=== PATIENT | male | born 1970 | race Caucasian/White ===

== ENCOUNTER 2024-09-24 19:18 | Inpatient (IN) | payer MEDICARE, MEDICAID, SELFPAY ==
[2024-09-24 19:21] VITALS: BP 174/95; PULSE 104; RESP 16; TEMP 36.7; O2SAT 94; BMI 35.5
--- NOTE | 2024-09-24 19:23 | ECG_ITS ---
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
[2024-09-24 19:46] LABS: Basophils % 0.6 %; Eosinophils % 0.4 %; Hematocrit 41.5 % (37-53); Lymphocytes # 1.7 10^3/uL (0.8-4.8); Lymphocytes % 31.3 %; Mean Corpuscular HGB Conc 30.6 g/dL (30-55); Mean Corpuscular Hemoglobin 32.6 pg (27-33); Mean Corpuscular Volume 106.7 fl (82-101); Mean Platelet Volume 9.8 fL (7.4-10.4); Monocytes # 0.8 10^3/uL (0.2-0.9); Monocytes % 15.1 %; Nucleated Red Blood Cells % 0 %; Platelet Count 135 10^3/cmm (157-399); Red Blood Count 3.89 10^6/uL (3.85-5.65); Red Cell Distribution Width 14.1 % (12.1-15.1); White Blood Count 5.37 10^3/uL (3.29-11.43)
--- NOTE | 2024-09-24 19:57 | W.ED.PSYCHS ---
Documented by User: Graciela Rubalcava MD 09/25/24 11:22 HPI - Psych General: Chief Complaint: Psychiatric Symptoms Stated Complaint: SI Time Seen by Provider: 09/24/24 19:22 History of Present Illness: 54-year-old man with a history of intellectual disability, antisocial personality, hypertension and bipolar disorder who [facility] emergency [facility] a [facility]. [facility] reports that he has been having behavioral outburst that have been worsening and severity. That is destroyed property and throwing things. They also say that he was trying to climb a fence. He tells me that all of this is false accusations. He also tells me that he had been accused of something and this was a false accusation as well. According the [facility] he has been convicted as a pediatric sex offender. He denies everything at this time. He says he was sitting on the ground outside and he was dirty. And that he did not attack anyone or try to climb any fences. Related Data Home Medications ?Medication ?Instructions ?Recorded ?Confirmed Lactobacillus acidophilus 1 tab PO DAILY 09/25/24 09/25/24 (Acidophilus chewable tablet) acetaminophen 500 mg tablet 1,000 mg PO Q6H PRN Pain 09/25/24 09/25/24 aluminum-mag hydroxide-simethicone 30 ml PO Q4H PRN Constipation 09/25/24 09/25/24 200 mg-200 mg-20 mg/5 mL oral susp (Xenia-Lanta) aspirin 81 mg tablet,delayed 81 mg PO DAILY 09/25/24 09/25/24 release atorvastatin 20 mg tablet 20 mg PO DAILY 09/25/24 09/25/24 bisacodyl 10 mg rectal suppository 10 mg CO DAILY PRN Constipation 09/25/24 09/25/24 buspirone 10 mg tablet 10 mg PO BID 09/25/24 09/25/24 citalopram 40 mg tablet 40 mg PO DAILY 09/25/24 09/25/24 dicyclomine 10 mg capsule 10 mg PO TID 09/25/24 09/25/24 divalproex 250 mg tablet,delayed 1,500 mg PO TID 09/25/24 09/25/24 release ergocalciferol (vitamin D2) 1,250 1,250 mcg PO DAILY 09/25/24 09/25/24 mcg (50,000 unit) capsule hydroxyzine HCl 25 mg tablet 25 mg PO QPM 09/25/24 09/25/24 loperamide 2 mg tablet 2 mg PO Q6H PRN Constipation 09/25/24 09/25/24 magnesium hydroxide 400 mg/5 mL 30 ml PO DAILY 09/25/24 09/25/24 oral suspension (Milk of Magnesia) meloxicam 15 mg tablet 15 mg PO DAILY 09/25/24 09/25/24 metoprolol tartrate 25 mg tablet 25 mg PO BID 09/25/24 09/25/24 omeprazole 20 mg capsule,delayed 20 mg PO DAILY 09/25/24 09/25/24 release polyethylene glycol 3350 17 17 g PO DAILY 09/25/24 09/25/24 gram/dose oral powder (Miralax) quetiapine 25 mg tablet 25 mg PO DAILY 09/25/24 09/25/24 quetiapine 50 mg tablet 50 mg PO DAILY 09/25/24 09/25/24 simethicone 80 mg chewable tablet 80 mg PO Q6H 09/25/24 09/25/24 tamsulosin 0.4 mg capsule 0.4 mg PO DAILY 09/25/24 09/25/24 triamcinolone acetonide 0.1 % 1 applic topical BID 09/25/24 09/25/24 topical cream Allergies Allergy/AdvReac Type Severity Reaction Status Date / Time mushroom Allergy Unknown Verified 09/24/24 19:27 Review of Systems Narrative: Constitutional symptoms: Negative except as documented in HPI. Skin symptoms: Negative except as documented in HPI. Eye symptoms: Negative except as documented in HPI. ENMT symptoms: Negative except as documented in HPI. Respiratory symptoms: Negative except as documented in HPI. Cardiovascular symptoms: Negative except as documented in HPI. Gastrointestinal symptoms: Negative except as documented in HPI. Genitourinary symptoms: Negative except as documented in HPI. Musculoskeletal symptoms: Negative except as documented in HPI. Neurologic symptoms: Negative except as documented in HPI. Psychiatric symptoms: Negative except as documented in HPI. Endocrine symptoms: Negative except as documented in HPI. Physical Exam Narrative: EXAM NARRATIVE: General: Alert, no acute distress. Skin: Warm, dry. Head: Normocephalic, atraumatic. Neck: Supple, trachea midline. Eye: Extraocular movements are intact. Ears, nose, mouth and throat: mucosa moist. Cardiovascular: Regular, Normal peripheral perfusion. Respiratory: Lungs are clear to auscultation, respirations are non-labored, breath sounds are equal, Symmetrical chest wall expansion. Gastrointestinal: Soft, Nontender, Non distended Musculoskeletal: Normal ROM, no deformity. Neurological: Alert and oriented, No focal neurological deficit observed. Psychiatric: Cooperative, odd affect. Denies suicidal or homicidal ideation Course Vital Signs: Vital signs: Vital Signs Temperature 98.1 F 09/24/24 19:21 Pulse Rate 65 09/25/24 12:00 Respiratory Rate 16 09/24/24 19:21 Blood Pressure 149/96 09/25/24 09:35 Pulse Oximetry 94 09/25/24 12:00 Oxygen Delivery Me thod Room Air 09/25/24 09:35 MDM - Psych Medical Decision Making Medical decision making: Differential diagnosis for patient with reported psychosis with plan for psychiatric admission including but not limited to and based on the above HPI, review of systems and physical exam: concerns for infection, alcohol intoxication, cardiac issues or other medical problems prior to psychiatric admission. Orders placed to evaluate differential diagnosis based on the above differential, HPI and physical exam labwork, ekg ordered to evaluate the pathologies and to clear the patient medically prior to psychiatric admission Consultation: I spoke with Dr. Zayas he suggest that we transfer to another facility as the patient might be better suited for that with his mild learning disability and behavioral issues and personality disorder. Patient care transitioned to Dr. Liang at shift change. If no one is accepted the patient tomorrow Dr. Zayas will see him here. Or admit him Lab Data 09/24/24 19:33 09/24/24 19:33 Laboratory Results WBC 5.37 10^3/uL (3.29-11.43) 09/24/24 19: RBC 3.89 10^6/uL (3.85-5.65) 09/24/24 19:33 Hgb 12.70 g/dL (11.27-16.99) 09/24/24 19:33 Hct 41.5 % (37-53) 09/24/24 19:33 MCV 106.7 fl (82-101) H 09/24/24 19: MCH 32.6 pg (27-33) 09/24/24 19:33 MCHC 30.6 g/dL (30-55) 09/24/24 19: RDW 14.1 % (12.1-15.1) 09/24/24 19:33 Plt Count 135 10^3/cmm (157-399) L 09/24/24 19:33 MPV 9.8 fL (7.4-10.4) 09/24/24 19: Neut % (Auto) 52.0 % 09/24/24 19: Lymph % (Auto) 31.3 % 09/24/24 19:33 Meigs % (Auto) 15.1 % 09/24/24 19: Eos % (Auto) 0.4 % 09/24/24 19: Baso % (Auto) 0.6 % 09/24/24: Neut # (Auto) 2.80 10^3/uL (1.8-7.7) 09/24/24 19: Lymph # (Auto) 1.7 10^3/uL (0.8-4.8) 09/24/24 19: [place] # (Auto) 0.8 10^3/uL (0.2-0.9) 09/24/24 19: Eos # (Auto) 0.0 10^3/uL (0.0-0.8) 09/24/24 19: Baso # (Auto) 0.0 10^3/uL (0.0-0.1) 09/24/24 19: Nucleated RBC % (auto) 0 % 09/24/24: Nucleated RBCs # 0.0 /100WBC 09/24/24 19:33 Sodium 137 mmol/L (136-145) 09/24/24 19:33 Potassium 4.6 mmol/L (3.5-5.1) 09/24/24 19: Chloride 103 mmol/L (98-107) 09/24/24 19: Carbon Dioxide 25 mmol/L (22-29) 09/24/24 19:33 Anion Gap 13.6 (5-19) 09/24/24 19:33 BUN 16 mg/dL (6-20) 09/24/24 19: Creatinine 1.1 mg/dL (0.7-1.2) 09/24/24 19:33 GFR Calculation 69.5 mL/min (90-130) L 09/24/24 19:33 Glucose 88 mg/dL (65-115) 09/24/24 19:33 Calculated Osmolality 285 mOsm/kg (285-295) 09/24/24 19:33 Calcium 9.2 mg/dL (8.5-10.5) 09/24/24 19:33 Total Bilirubin 0.2 mg/dL (0.15-1.2) 09/24/24 19:33 AST 40 U/L (0-40) 09/24/24 19:33 ALT 45 U/L (0-41) H 09/24/24 19:33 Alkaline Phosphatase 62 U/L (40-130) 09/24/24 19:33 Total Protein 6.2 g/dL (6.6-8.7) L 09/24/24 19: Albumin 4.1 g/dL (3.5-5.2) 09/24/24 19: Globulin 2.1 g/dL (1.3-4.6) 09/24/24 19:33 TSH 5.56 uIU/mL (0.27-4.20) H 09/24/24 19:33 Urine Color Yellow (Yellow) 09/24/24 20:54 Urine Appearance Clear (CLEAR) 09/24/24 20:54 Urine pH 6.5 (5-7) 09/24/24 20:54 Ur Specific [place] 1.018 (1.005-1.030) 09/24/24 20:54 Urine Protein Negative (Negative) 09/24/24 20:54 Urine Glucose (UA) Negative (Normal) 09/24/24 20:54 Urine Ketones Negative (Negative) 09/24/24 20:54 Urine Blood Negative (Negative) 09/24/24 20:54 Urine Nitrate Negative (Negative) 09/24/24 20:54 Urine Bilirubin Negative (Negative) 09/24/24 20:54 Urine Urobilinogen 1.0 mg/dL (Negative) 09/24/24 20:54 Ur Leukocyte Esterase Negative (Negative) 09/24/24 20:54 Urine RBC 6-10 /hpf (0-2) 09/24/24 20:54 Urine WBC 0-5 /hpf (0-5) 09/24/24 20:54 Ur Squamous Epith Cells 0-5 /hpf (0-5) 09/24/24 20:54 Amorphous Sediment Not Reportable 09/24/24 20:54 Urine Bacteria None seen /hpf (NONE) 09/24/24 20:54 Hyaline Casts 0-4 /lpf H 09/24/24 20:54 Salicylates < 0.3 mg/dL (3-10) L 09/24/24 19:33 Urine Opiates Screen Negative ng/mL (Negative) 09/24/24 20:54 Acetaminophen < 5.0 ug/mL (10-30) L 09/24/24 19:33 Ur Barbiturates Screen Negative ng/mL (Negative) 09/24/24 20:54 Ur Phencyclidine Scrn Negative ng/mL (Negative) 09/24/24 20:54 Ur Amphetamines Screen Negative ng/mL (Negative) 09/24/24 20:54 U Benzodiazepines Scrn Negative ng/mL (Negative) 09/24/24 20:54 Urine Cocaine Screen Negative ng/mL (Negative) 09/24/24 20:54 U Marijuana (THC) Screen Negative ng/mL (Negative) 09/24/24 20:54 Ethyl Alcohol < 10 mg/dL (0-10) 09/24/24 19:33 Adenovirus (PCR) Not detected (NOT DETECT) 09/24/24 20:52 C. pneumoniae DNA (PCR) Not detected (NOT DETECT) 09/24/24 20:52 Coronavirus 229E (PCR) Not detected (NOT DETECT) 09/24/24 20:52 Human Metapneumovir PCR Not detected (NOT DETECT) 09/24/24 20:52 Influenza A (H1) PCR Not detected (NOT DETECT) 09/24/24 20:52 Influ A (H1/09) PCR Not detected (NOT DETECT) 09/24/24 20:52 Influenza A (H3) PCR Not detected (NOT DETECT) 09/24/24 20:52 Influenza Type A (PCR) Not detected (NOT DETECT) 09/24/24 20:52 Influenza Type B (PCR) Not detected (NOT DETECT) 09/24/24 20:52 M. pneumoniae (PCR) Not detected (NOT DETECT) 09/24/24 20:52 Parainfluenza 1 (PCR) Not detected (NOT DETECT) 09/24/24 20:52 Parainfluenza 2 (PCR) Not detected (NOT DETECT) 09/24/24 20:52 Parainfluenza 3 (PCR) Not detected (NOT DETECT) 09/24/24 20:52 Parainfluenza 4 (PCR) Not detected (NOT DETECT) 09/24/24 20:52 RSV Type A (PCR) Not detected (NOT DETECT) 09/24/24 20:52 RSV Type B (PCR) Not detected (NOT DETECT) 09/24/24 20:52 Entero/Rhino (PCR) Not detected (NOT DETECT) 09/24/24 20:52 SARS-CoV-2 (PCR) Not detected (NOT DETECT) 09/24/24 20:52 No radiology studies performed this visit Discharge Plan Discharge Patient Disposition: Admitted As Inpatient Clinical Impression: Bipolar disorder, Antisocial personality disorder, Behavioral disorder Condition: Stable Prescriptions: No Action quetiapine 25 mg tablet 25 mg PO DAILY atorvastatin 20 mg tablet 20 mg PO DAILY citalopram 40 mg tablet 40 mg PO DAILY divalproex 250 mg tablet,delayed release (DR/EC) 1,500 mg PO TID Rx Instructions: give 6 tablets by mouth three times daily for antisocial personality meloxicam 15 mg tablet 15 mg PO DAILY loperamide 2 mg Tablet 2 mg PO Q6H PRN (Reason: Constipation) aspirin [Aspir-81] 81 mg Tablet,Delayed Release (Dr/Ec) 81 mg PO DAILY acetaminophen 500 mg Tablet 1,000 mg PO Q6H PRN (Reason: Pain) triamcinolone acetonide 0.1 % Cream 1 applic TOPICAL BID magnesium hydroxide [Milk of Magnesia] 400 mg/5 mL Suspension 30 ml PO DAILY tamsulosin 0.4 mg capsule 0.4 mg PO DAILY bisacodyl 10 mg Suppository 10 mg CO DAILY PRN (Reason: Constipation) buspirone 10 mg tablet 10 mg PO BID omeprazole 20 mg capsule,delayed release(DR/EC) 20 mg PO DAILY hydroxyzine HCl 25 mg tablet 25 mg PO QPM ergocalciferol (vitamin D2) 1,250 mcg (50,000 unit) Capsule 1,250 mcg PO DAILY alum-mag hydroxide-simeth [Xenia-Lanta] 200-200-20 mg/5 mL Suspension 30 ml PO Q4H PRN (Reason: Constipation) Rx Instructions: administer between meals and at bedtime polyethylene glycol 3350 [Miralax] 17 gram/dose Powder 17 g PO DAILY dicyclomine 10 mg capsule 10 mg PO TID simethicone 80 mg Tablet,Chewable 80 mg PO Q6H Acidophilus Tablet,Chewable 1 tab PO DAILY metoprolol tartrate 25 mg tablet 25 mg PO BID quetiapine 50 mg tablet 50 mg PO DAILY Referrals: Wilman Britton [Primary Care Provider] - Patient Instructions: Opioid Safety, Pain Management Print Language: Welsh Sign Out Sign Out Data: Patient Sign Out occurred on 09/25/24 at 10:41. Patient's care was discussed, and care was transferred from Graciela Rubalcava MD to Hermilo Bolaños DO. Coding Level of Care Code ED Registrar Assistant for Ch[facility] Fwd Documented by User: Hermilo Bolaños DO 09/25/24 14:28 HPI - Psych General: Chief Complaint: Psychiatric Symptoms Stated Complaint: SI Time Seen by Provider: 09/24/24 19:22 Related Data Home Medications ?Medication ?Instructions ?Recorded ?Confirmed Lactobacillus acidophilus 1 tab PO DAILY 09/25/24 09/25/24 (Acidophilus chewable tablet) acetaminophen 500 mg tablet 1,000 mg PO Q6H PRN Pain 09/25/24 09/25/24 aluminum-mag hydroxide-simethicone 30 ml PO Q4H PRN Constipation 09/25/24 09/25/24 200 mg-200 mg-20 mg/5 mL oral susp (Xenia-Lanta) aspirin 81 mg tablet,delayed 81 mg PO DAILY 09/25/24 09/25/24 release atorvastatin 20 mg tablet 20 mg PO DAILY 09/25/24 09/25/24 bisacodyl 10 mg rectal suppository 10 mg CO DAILY PRN Constipation 09/25/24 09/25/24 buspirone 10 mg tablet 10 mg PO BID 09/25/24 09/25/24 citalopram 40 mg tablet 40 mg PO DAILY 09/25/24 09/25/24 dicyclomine 10 mg capsule 10 mg PO TID 09/25/24 09/25/24 divalproex 250 mg tablet,delayed 1,500 mg PO TID 09/25/24 09/25/24 release ergocalciferol (vitamin D2) 1,250 1,250 mcg PO DAILY 09/25/24 09/25/24 mcg (50,000 unit) capsule hydroxyzine HCl 25 mg tablet 25 mg PO QPM 09/25/24 09/25/24 loperamide 2 mg tablet 2 mg PO Q6H PRN Constipation 09/25/24 09/25/24 magnesium hydroxide 400 mg/5 mL 30 ml PO DAILY 09/25/24 09/25/24 oral suspension (Milk of Magnesia) meloxicam 15 mg tablet 15 mg PO DAILY 09/25/24 09/25/24 metoprolol tartrate 25 mg tablet 25 mg PO BID 09/25/24 09/25/24 omeprazole 20 mg capsule,delayed 20 mg PO DAILY 09/25/24 09/25/24 release polyethylene glycol 3350 17 17 g PO DAILY 09/25/24 09/25/24 gram/dose oral powder (Miralax) quetiapine 25 mg tablet 25 mg PO DAILY 09/25/24 09/25/24 quetiapine 50 mg tablet 50 mg PO DAILY 09/25/24 09/25/24 simethicone 80 mg chewable tablet 80 mg PO Q6H 09/25/24 09/25/24 tamsulosin 0.4 mg capsule 0.4 mg PO DAILY 09/25/24 09/25/24 triamcinolone acetonide 0.1 % 1 applic topical BID 09/25/24 09/25/24 topical cream Allergies Allergy/AdvReac Type Severity Reaction Status Date / Time mushroom Allergy Unknown Verified 09/24/24 19:27 Course Vital Signs: Vital signs: Vital Signs Temperature 98.1 F 09/24/24 19:21 Pulse Rate 65 09/25/24 12:00 Respiratory Rate 16 09/24/24 19:21 Blood Pressure 149/96 09/25/24 09:35 Pulse Oximetry 94 09/25/24 12:00 Oxygen Delivery Me thod Room Air 09/25/24 09:35 MDM - Psych Medical Decision Making Medical decision making: Differential diagnosis for patient with reported psychosis with plan for psychiatric admission including but not limited to and based on the above HPI, review of systems and physical exam: concerns for infection, alcohol intoxication, cardiac issues or other medical problems prior to psychiatric admission. Orders placed to evaluate differential diagnosis based on the above differential, HPI and physical exam labwork, ekg ordered to evaluate the pathologies and to clear the patient medically prior to psychiatric admission Consultation: I spoke with Dr. Zayas he suggest that we transfer to another facility as the patient might be better suited for that with his mild learning disability and behavioral issues and personality disorder. Patient care transitioned to Dr. Liang at shift change. If no one is accepted the patient tomorrow Dr. Zayas will see him here. Or admit him 09/25/2024 1046 care assumed at change of shift. Patient has been refused by all the facilities they have reviewed with him because of his behavioral issues. I talked to Dr. Zaays he is Khadar, consult on the patient Dr. Rubalcava and talk to him about this patient yesterday. Dr. Zayas is seen the patient chart [facility] is saying they will accept the patient back after hospitalization. Dr. Zayas agreed to admit him to our [facility] orders are written Medical Records I reviewed the patient's medical records. Lab Data I reviewed the patient's lab results. 09/24/24 19:33 09/24/24 19:33 Laboratory Results WBC 5.37 10^3/uL (3.29-11.43) 09/24/24 19: RBC 3.89 10^6/uL (3.85-5.65) 09/24/24 19: Hgb 12.70 g/dL (11.27-16.99) 09/24/24 19: Hct 41.5 % (37-53) 09/24/24 19: MCV 106.7 fl (82-101) H 09/24/24 19: MCH 32.6 pg (27-33) 09/24/24 19: MCHC 30.6 g/dL (30-55) 09/24/24 19:33 RDW 14.1 % (12.1-15.1) 09/24/24 19: Plt Count 135 10^3/cmm (157-399) L 09/24/24 19: MPV 9.8 fL (7.4-10.4) 09/24/24 19:33 Neut % (Auto) 52.0 % 09/24/24 19: Lymph % (Auto) 31.3 % 09/24/24 19:33 [place] % (Auto) 15.1 % 09/24/24 19:33 Eos % (Auto) 0.4 % 09/24/24 19:33 Baso % (Auto) 0.6 % 09/24/24: Neut # (Auto) 2.80 10^3/uL (1.8-7.7) 09/24/24 19: Lymph # (Auto) 1.7 10^3/uL (0.8-4.8) 09/24/24 19: [place] # (Auto) 0.8 10^3/uL (0.2-0.9) 09/24/24 19: Eos # (Auto) 0.0 10^3/uL (0.0-0.8) 09/24/24: Baso # (Auto) 0.0 10^3/uL (0.0-0.1) 09/24/24 19: Nucleated RBC % (auto) 0 % 09/24/24: Nucleated RBCs # 0.0 /100WBC 09/24/24 19:33 Sodium 137 mmol/L (136-145) 09/24/24 19:33 Potassium 4.6 mmol/L (3.5-5.1) 09/24/24 19: Chloride 103 mmol/L (98-107) 09/24/24 19: Carbon Dioxide 25 mmol/L (22-29) 09/24/24 19:33 Anion Gap 13.6 (5-19) 09/24/24 19:33 BUN 16 mg/dL (6-20) 09/24/24 19: Creatinine 1.1 mg/dL (0.7-1.2) 09/24/24 19:33 GFR Calculation 69.5 mL/min (90-130) L 09/24/24 19:33 Glucose 88 mg/dL (65-115) 09/24/24 19:33 Calculated Osmolality 285 mOsm/kg (285-295) 09/24/24 19:33 Calcium 9.2 mg/dL (8.5-10.5) 04/28/25 19:33 Total Bilirubin 0.2 mg/dL (0.15-1.2) 09/24/24 19:33 AST 40 U/L (0-40) 09/24/24 19:33 ALT 45 U/L (0-41) H 09/24/24 19:33 Alkaline Phosphatase 62 U/L (40-130) 09/24/24 19:33 Total Protein 6.2 g/dL (6.6-8.7) L 09/24/24 19:33 Albumin 4.1 g/dL (3.5-5.2) 09/24/24 19: Globulin 2.1 g/dL (1.3-4.6) 09/24/24 19: TSH 5.56 uIU/mL (0.27-4.20) H 09/24/24 19:33 Urine Color Yellow (Yellow) 09/24/24 20:54 Urine Appearance Clear (CLEAR) 09/24/24 20:54 Urine pH 6.5 (5-7) 09/24/24 20:54 Ur Specific [place] 1.018 (1.005-1.030) 09/24/24 20:54 Urine Protein Negative (Negative) 09/24/24 20:54 Urine Glucose (UA) Negative (Normal) 09/24/24 20:54 Urine Ketones Negative (Negative) 09/24/24 20:54 Urine Blood Negative (Negative) 09/24/24 20:54 Urine Nitrate Negative (Negative) 09/24/24 20:54 Urine Bilirubin Negative (Negative) 09/24/24 20:54 Urine Urobilinogen 1.0 mg/dL (Negative) 09/24/24 20:54 Ur Leukocyte Esterase Negative (Negative) 09/24/24 20:54 Urine RBC 6-10 /hpf (0-2) 09/24/24 20:54 Urine WBC 0-5 /hpf (0-5) 09/24/24 20:54 Ur Squamous Epith Cells 0-5 /hpf (0-5) 09/24/24 20:54 Amorphous Sediment Not Reportable 09/24/24 20:54 Urine Bacteria None seen /hpf (NONE) 09/24/24 20:54 Hyaline Casts 0-4 /lpf H 09/24/24 20:54 Salicylates < 0.3 mg/dL (3-10) L 09/24/24 19:33 Urine Opiates Screen Negative ng/mL (Negative) 09/24/24 20:54 Acetaminophen < 5.0 ug/mL (10-30) L 09/24/24 19:33 Ur Barbiturates Screen Negative ng/mL (Negative) 09/24/24 20:54 Ur Phencyclidine Scrn Negative ng/mL (Negative) 09/24/24 20:54 Ur Amphetamines Screen Negative ng/mL (Negative) 09/24/24 20:54 U Benzodiazepines Scrn Negative ng/mL (Negative) 09/24/24 20:54 Urine Cocaine Screen Negative ng/mL (Negative) 09/24/24 20:54 U Marijuana (THC) Screen Negative ng/mL (Negative) 09/24/24 20:54 Ethyl Alcohol < 10 mg/dL (0-10) 09/24/24 19:33 Adenovirus (PCR) Not detected (NOT DETECT) 09/24/24 20:52 C. pneumoniae DNA (PCR) Not detected (NOT DETECT) 09/24/24 20:52 Coronavirus 229E (PCR) Not detected (NOT DETECT) 09/24/24 20:52 Human Metapneumovir PCR Not detected (NOT DETECT) 09/24/24 20:52 Influenza A (H1) PCR Not detected (NOT DETECT) 09/24/24 20:52 Influ A (H1/09) PCR Not detected (NOT DETECT) 09/24/24 20:52 Influenza A (H3) PCR Not detected (NOT DETECT) 09/24/24 20:52 Influenza Type A (PCR) Not detected (NOT DETECT) 09/24/24 20:52 Influenza Type B (PCR) Not detected (NOT DETECT) 09/24/24 20:52 M. pneumoniae (PCR) Not detected (NOT DETECT) 09/24/24 20:52 Parainfluenza 1 (PCR) Not detected (NOT DETECT) 09/24/24 20:52 Parainfluenza 2 (PCR) Not detected (NOT DETECT) 09/24/24 20:52 Parainfluenza 3 (PCR) Not detected (NOT DETECT) 09/24/24 20:52 Parainfluenza 4 (PCR) Not detected (NOT DETECT) 09/24/24 20:52 RSV Type A (PCR) Not detected (NOT DETECT) 09/24/24 20:52 RSV Type B (PCR) Not detected (NOT DETECT) 09/24/24 20:52 Entero/Rhino (PCR) Not detected (NOT DETECT) 09/24/24 20:52 SARS-CoV-2 (PCR) Not detected (NOT DETECT) 09/24/24 20:52 Discharge Plan Discharge Patient Disposition: Admitted As Inpatient Clinical Impression: Bipolar disorder, Antisocial personality disorder, Behavioral disorder Condition: Stable Prescriptions: No Action quetiapine 25 mg tablet 25 mg PO DAILY atorvastatin 20 mg tablet 20 mg PO DAILY citalopram 40 mg tablet 40 mg PO DAILY divalproex 250 mg tablet,delayed release (DR/EC) 1,500 mg PO TID Rx Instructions: give 6 tablets by mouth three times daily for antisocial personality meloxicam 15 mg tablet 15 mg PO DAILY loperamide 2 mg Tablet 2 mg PO Q6H PRN (Reason: Constipation) aspirin [Aspir-81] 81 mg Tablet,Delayed Release (Dr/Ec) 81 mg PO DAILY acetaminophen 500 mg Tablet 1,000 mg PO Q6H PRN (Reason: Pain) triamcinolone acetonide 0.1 % Cream 1 applic TOPICAL BID magnesium hydroxide [Milk of Magnesia] 400 mg/5 mL Suspension 30 ml PO DAILY tamsulosin 0.4 mg capsule 0.4 mg PO DAILY bisacodyl 10 mg Suppository 10 mg CO DAILY PRN (Reason: Constipation) buspirone 10 mg tablet 10 mg PO BID omeprazole 20 mg capsule,delayed release(DR/EC) 20 mg PO DAILY hydroxyzine HCl 25 mg tablet 25 mg PO QPM ergocalciferol (vitamin D2) 1,250 mcg (50,000 unit) Capsule 1,250 mcg PO DAILY alum-mag hydroxide-simeth [Xenia-Lanta] 200-200-20 mg/5 mL Suspension 30 ml PO Q4H PRN (Reason: Constipation) Rx Instructions: administer between meals and at bedtime polyethylene glycol 3350 [Miralax] 17 gram/dose Powder 17 g PO DAILY dicyclomine 10 mg capsule 10 mg PO TID simethicone 80 mg Tablet,Chewable 80 mg PO Q6H Acidophilus Tablet,Chewable 1 tab PO DAILY metoprolol tartrate 25 mg tablet 25 mg PO BID quetiapine 50 mg tablet 50 mg PO DAILY Referrals: Wilman Britton [Primary Care Provider] - Patient Instructions: Opioid Safety, Pain Management Print Language: Welsh Sign Out Sign Out Data: Patient Sign Out occurred on 09/25/24 at 10:41. Patient's care was discussed, and care was transferred from Graciela Rubalcava MD to Hermilo Bolaños DO. Coding Level of Care Code ED Registrar Assistant for Cedric Benavidez
[2024-09-24 20:11] LABS: Alanine Aminotransferase 45 U/L (0-41); Albumin Level 4.1 g/dL (3.5-5.2); Alkaline Phosphatase 62 U/L (40-130); Anion Gap 13.6 (5-19); Aspartate Amino Transferase 40 U/L (0-40); Blood Urea Nitrogen 16 mg/dL (6-20); Calcium 9.2 mg/dL (8.5-10.5); Carbon Dioxide 25 mmol/L (22-29); Chloride 103 mmol/L (98-107); Creatinine Clr Calc Pharmacy 83.9225; Globulin 2.1 g/dL (1.3-4.6); Glomerular Filtration Rate 69.5 mL/min (90-130); Glucose 88 mg/dL (65-115); Osmolality Calculated 285 mOsm/kg (285-295); Potassium 4.6 mmol/L (3.5-5.1); Sodium 137 mmol/L (136-145); Thyroid Stimulating Hormone 5.56 uIU/mL (0.27-4.20); Total Bilirubin 0.2 mg/dL (0.15-1.2); Total Protein 6.2 g/dL (6.6-8.7)
[2024-09-24 20:18] LABS: Acetaminophen < 5.0 ug/mL (10-30); Alcohol Level < 10 mg/dL (0-10); Salicylate < 0.3 mg/dL (3-10)
[2024-09-24 21:12] LABS: Bilirubin Urine Negative (Negative); Blood Urine Negative (Negative); Glucose Urine UA Negative (Normal); Ketones Urine Negative (Negative); Leukocyte Esterase Urine Negative (Negative); Nitrate Urine Negative (Negative); Protein Urine Negative (Negative); Specific Gravity, Urine 1.018 (1.005-1.030); Urine Appearance Clear (CLEAR); Urine Color Yellow (Yellow); pH Urine 6.5 (5-7)
[2024-09-24 21:14] LABS: Add Urine Microscopic? YES; Bacteria Urine None Seen /hpf; Hyaline Casts Urine 0-4 /lpf; Squamous Epithelial Cell Urine 0-5 /hpf (0-5); WBC Urine 0-5 /hpf (0-5)
[2024-09-24 21:19] LABS: Amphetamines Screen Urine Negative (Negative); Barbiturates Screen Urine Negative (Negative); Benzodiazepines Screen Urine Negative (Negative); Cocaine Screen Urine Negative (Negative); Opiate Screen Urine Negative (Negative); PCP Screen Urine Negative (Negative); THC Screen Urine Negative (Negative)
[2024-09-24 22:46] LABS: Adenovirus Not Detected (NOT DETECT); Chlamydia Pneumoniae Not Detected (NOT DETECT); Coronavirus 229E,HKU1,NL63,OC4 Not Detected (NOT DETECT); Human Metapneumovirus Not Detected (NOT DETECT); Human Rhinovirus/Enterovirus Not Detected (NOT DETECT); Influenza A Not Detected (NOT DETECT); Influenza A H1 Not Detected (NOT DETECT); Influenza A H1-2009 Not Detected (NOT DETECT); Influenza A H3 Not Detected (NOT DETECT); Influenza B Not Detected (NOT DETECT); Mycoplasma Pneumoniae Not Detected (NOT DETECT); Parainfluenza Virus Type 1 Not Detected (NOT DETECT); Parainfluenza Virus Type 2 Not Detected (NOT DETECT); Parainfluenza Virus Type 3 Not Detected (NOT DETECT); Parainfluenza Virus Type 4 Not Detected (NOT DETECT); Respiratory Syncytial Virus A Not Detected (NOT DETECT); Respiratory Syncytial Virus B Not Detected (NOT DETECT); SARS-COV-2 Not Detected (NOT DETECT)
[2024-09-25 04:00] VITALS: BP 144/86; PULSE 70; O2SAT 94
--- NOTE | 2024-09-25 07:26 | PC.PHAR ---
patient is from [facility]
[2024-09-25 09:35] VITALS: BP 149/96; PULSE 83; O2SAT 96
[2024-09-25 12:00] VITALS: PULSE 65; O2SAT 94
--- NOTE | 2024-09-25 14:35 | PC.NURSE ---
Spoke to Ania at [facility], Ania states that pt will be accepted back to facility. Ania aware of pt's update and admit to [facility].
--- NOTE | 2024-09-25 14:42 | PC.NURSE ---
PT report called to Stefani in [facility] at 1440.
[2024-09-25 15:48] VITALS: BP 121/83; PULSE 83; RESP 18; TEMP 36.7; O2SAT 98
[2024-09-25 16:05] VITALS: BP 149/96; PULSE 65; O2SAT 94
[2024-09-25] MEDS: acetaminophen 325 mg Tablet 650 MG PO (16:36)
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
[2024-09-25] MEDS: trazodone 50 mg Tablet PO ×2 (19:21→20:11)
[2024-09-25] MEDS: hyDROXYzine 25 mg Capsule 50 MG PO (19:21)
[2024-09-25 20:06] VITALS: BP 131/93; PULSE 88; RESP 18; TEMP 36.7; O2SAT 100
[2024-09-25] MEDS: simethicone 80 mg Chew PO (20:11)
[2024-09-25] MEDS: OLANZapine 5 mg ODT PO (20:11)
[2024-09-25] MEDS: divalproex DR 250 mg Tablet 1500 MG PO (20:11)
[2024-09-26 05:56] VITALS: BP 136/86; PULSE 104; RESP 18; TEMP 36.8; O2SAT 98
[2024-09-26] MEDS: BuSPIRONE 10 mg Tablet PO ×2 (08:26→17:50)
[2024-09-26] MEDS: polyethylene glycol 3350 Pkt 17 gm PO (08:26)
[2024-09-26] MEDS: ATORVASTATIN 10 MG TABLET 20 MG PO ×2 (08:26→20:01)
[2024-09-26] MEDS: citalopram 20 mg Tablet 40 MG PO (08:27)
[2024-09-26] MEDS: acetaminophen 325 mg Tablet 650 MG PO (08:27)
[2024-09-26] MEDS: OLANZapine 5 mg ODT PO ×2 (08:27→20:01)
[2024-09-26] MEDS: quetiapine 25 mg Tablet PO (08:27)
[2024-09-26] MEDS: lactobacillus 1 Tablet 1 TAB PO (08:27)
[2024-09-26] MEDS: simethicone 80 mg Chew PO ×2 (08:27→13:59)
[2024-09-26] MEDS: pantoprazole DR 40 mg Tablet PO (08:27)
[2024-09-26] MEDS: divalproex DR 250 mg Tablet 1500 MG PO ×2 (08:28→20:59)
[2024-09-26] MEDS: meloxicam 7.5 mg tablet 15 MG PO (08:28)
[2024-09-26] MEDS: tamsulosin 0.4 mg Capsule PO (08:28)
[2024-09-26] MEDS: metoprolol tartrate 25 mg Tablet PO ×2 (08:28→17:49)
[2024-09-26] MEDS: aspirin 81 mg EC Tablet PO (08:28)
[2024-09-26] MEDS: quetiapine 25 mg Tablet 50 MG PO (08:28)
[2024-09-26] MEDS: dicyclomine 10 mg Capsule PO ×3 (10:27→20:01)
--- NOTE | 2024-09-26 13:37 | W.PM.NPUH&PS ---
Providers/Chief Complaint Admitting Physician: Steven Zayas MD Primary Care Provider: Wilman Britton Chief Complaint: SI HPI NPU History of Present Illness Dameon Hernandez is a 54 year old male who presented to the emergency department with the following report: AcuteChief Complaint: Psychiatric Symptoms Stated Complaint: SI Time Seen by Provider: 09/24/24 19:22 History of Present Illness: 54-year-old man with a history of intellectual disability, antisocial personality, hypertension and bipolar disorder who presents emergency room by ambulance from a prison. intermediate reports that he has been having behavioral outburst that have been worsening and severity. That is destroyed property and throwing things. They also say that he was trying to climb a fence. He tells me that all of this is false accusations. He also tells me that he had been accused of something and this was a false accusation as well. According the prison he has been convicted as a pediatric sex offender. He denies everything at this time. He says he was sitting on the ground outside and he was dirty. And that he did not attack anyone or try to climb any fences. He was admitted to the neuropsychiatric unit for definitive treatment of those issues. He is unknown to [facility] psychiatry through inpatient or outpatient services. He presented today as a very poor historian as he was very lethargic and hard to arouse Fall asleep during interview. He spoke earlier briefly and he was alert but by the time I saw him he was unable to be awoken for regular conversation. Even so it appears that he is a limited historian due to past diagnosis of intellectual disability and there is significant discrepancy between his reports and those of his facility. 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 For reasons possibly of being an appropriate in front of his roommate he was removed from the ISL and now is in a prison. I do not report those kinds of issues thus far but report him to be quite mercurial and having essentially intermittent explosions related to boundary setting. He had denied this concern or issue reporting that he is misunderstood. They report that in situations where they set limits he will immediately be explosive or agitated and not able to be redirected. Again he has denied these accusations. They even report that in this situation he had a very fast but aggressive response to the interaction with a staff member and was reportedly throwing things. There is even some report of him climbing on something but he denies that to be true either. They report however shortly after he had had his explosion, he ended up seeming to calm down but concerns about his behavior and that it was seeming to escalate were present and so he was brought to the hospital for evaluation of his medication. We discussed the risks, benefits and alternatives of considering changing out of the Seroquel and possibly giving him something like Invega or Abilify but we we will need to get some information on past medications and he understood and agreed to proceed as is documented in this note. He does have a guardian and so we will reach out to the guardian and figure out what that person knows if it is a longtime guardian or somebody from the facility. There are some concerns about his amount of medication and we discussed that we would evaluate his medication and make changes as indicated. Meds NPU Home Medications ?Medication ?Instructions ?Recorded ?Confirmed ?Last Taken ?Type Lactobacillus acidophilus 1 tab PO DAILY 09/25/24 09/25/24 Unknown History (Acidophilus chewable tablet) acetaminophen 500 mg tablet 1,000 mg PO Q6H PRN Pain 09/25/24 09/25/24 09/08/24 History aluminum-mag hydroxide-simethicone 30 ml PO Q4H PRN Constipation 09/25/24 09/25/24 Unknown History 200 mg-200 mg-20 mg/5 mL oral susp (Xneia-Lanta) aspirin 81 mg tablet,delayed 81 mg PO DAILY 09/25/24 09/25/24 09/24/24 History release atorvastatin 20 mg tablet 20 mg PO DAILY 09/25/24 09/25/24 09/23/24 History bisacodyl 10 mg rectal suppository 10 mg PA DAILY PRN Constipation 09/25/24 09/25/24 Unknown History buspirone 10 mg tablet 10 mg PO BID 09/25/24 09/25/24 09/24/24 History citalopram 40 mg tablet 40 mg PO DAILY 09/25/24 09/25/24 09/24/24 History dicyclomine 10 mg capsule 10 mg PO TID 09/25/24 09/25/24 09/24/24 History divalproex 250 mg tablet,delayed 1,500 mg PO TID 09/25/24 09/25/24 09/24/24 History release ergocalciferol (vitamin D2) 1,250 1,250 mcg PO DAILY 09/25/24 09/25/24 Unknown History mcg (50,000 unit) capsule hydroxyzine HCl 25 mg tablet 25 mg PO QPM 09/25/24 09/25/24 09/23/24 History loperamide 2 mg tablet 2 mg PO Q6H PRN Constipation 09/25/24 09/25/24 Unknown History magnesium hydroxide 400 mg/5 mL 30 ml PO DAILY 09/25/24 09/25/24 Unknown History oral suspension (Milk of Magnesia) meloxicam 15 mg tablet 15 mg PO DAILY 09/25/24 09/25/24 09/24/24 History metoprolol tartrate 25 mg tablet 25 mg PO BID 09/25/24 09/25/24 09/24/24 History omeprazole 20 mg capsule,delayed 20 mg PO DAILY 09/25/24 09/25/24 09/24/24 History release polyethylene glycol 3350 17 17 g PO DAILY 09/25/24 09/25/24 Unknown History gram/dose oral powder (Miralax) quetiapine 25 mg tablet 25 mg PO DAILY 09/25/24 09/25/24 Unknown History quetiapine 50 mg tablet 50 mg PO DAILY 09/25/24 09/25/24 Unknown History simethicone 80 mg chewable tablet 80 mg PO Q6H 09/25/24 09/25/24 Unknown History tamsulosin 0.4 mg capsule 0.4 mg PO DAILY 09/25/24 09/25/24 09/24/24 History triamcinolone acetonide 0.1 % 1 applic topical BID 09/25/24 09/25/24 Unknown History topical cream Allergies Allergy/AdvReac Type Severity Reaction Status Date / Time mushroom Allergy Unknown Verified 09/24/24 19:27 Mental Status Exam MSE Comments: This is an obese white male, with hospital scrubs on, disheveled with limited eye contact looking slightly older than his stated age. No abnormal movements except for significant psychomotor retardation. Cooperative with exam in no acute distress. Speech was decreased rate and volume and dysarthric. Mood described as okay; affect lethargic. Thought process, mostly linear. Thought content: patient denied suicidal or homicidal ideation, there were no delusions reported or noted, patient denied any auditory or visual hallucinations. Attention and concentration appeared intact, and memory appears reliable but there are discrepancies between his reports and reports of his prison but were not formally tested. He is arousable and oriented to person and place. Insight and judgment are impaired. Impulse control impaired, and intellectual ability appears limited versus impaired. Vitals/I&O/Wt Last Vital Signs Temp 98.3 F 09/26/24 05:56 Pulse 104 H 09/26/24 05:56 Resp 18 09/26/24 05:56 BP 136/86 09/26/24 05:56 Pulse Ox 98 09/26/24 05:56 O2 Del Method Room Air 09/26/24 05:56 Weight last 48 hrs Weight 99.79 kg Data NPU 09/24/24 19:33 09/24/24 19:33 A&P Assessment and plan (1) Bipolar disorder: (2) Antisocial personality disorder: (3) Intellectual disability: (4) Behavioral disorder: (5) Aggressive behavior: Plan This is a 54 year old white male with a long history of mental health issues including intellectual disability among other impulse control issues who is in a prison after previously being in the IS with recent reports of ypt-py-[id number] behavior when he is frustrated. He is unknown to this team vet presents on multiple medications both psychiatric and others and a report of Depakote 1500 mg p.o. 3 times daily but Seroquel 75 mg daily which seems odd and we will evaluate medications and get information on the validity through the [facility] excetra. 1. Continue current medication. Will consider medication adjustments 2. Continue every 15 minute checks for safety. 3. Encourage individual, group and milieu therapies. 4. Get collateral information. 5. Evaluate against the backdrop of 96-hour hold. PDMP PDMP Reviewed: Not Reviewed Involuntary Hold Information Hold Status: Legal Status: Active Guardianship Date/Time Hold Expires: 10/01/2024 Attestations NPU Medical Necessity Statement*: Inpatient hospitalization is medically necessary and the clinically appropriate intervention at this time. We will monitor medications and make changes as indicated. Patient will be in the hospital for over two midnights. His likely length of stay is 3-5 days. Coding Level of Care Code Acute Code for [facility] Diagnoses Bipolar disorder F31.9 Antisocial personality disorder F60.2 Intellectual disability F79 Behavioral disorder Aggressive behavior R46.89
[2024-09-26 14:00] VITALS: BP 72/51; PULSE 80; RESP 17; O2SAT 93
[2024-09-26 16:00] VITALS: BP 119/66; PULSE 81; RESP 16; O2SAT 96
[2024-09-26] MEDS: HYDROXYZINE HCL 25 MG 25 EACH PO (17:53)
[2024-09-26] MEDS: ibuprofen 600 mg Tablet PO (17:53)
--- NOTE | 2024-09-26 18:08 | PC.NURSE ---
RECEIVED CONFIRMATION OF PT MEDICATIONS FROM [facility] PER PT JUL. NOTIFIED DR. FARRELL THAT PT IS RECEIVING DEPAKOTE DR 250 MG TAKE 6 TABLETS (1500 MG) TID. ORDERS RECEIVED TO COLLECT STAT VALPROIC ACID LEVEL, ONCE LAB COLLECTS VALPROIC ACID LEVEL NURSE TO GIVE PTS 3PM DOSE OF DEPAKOTE 1500 MG. RN IS TO CALL RESULTS OF VALPROIC ACID TO DR. FARRELL PRIOR TO GIVING THE 9PM DOSE OF 1500 MG OF DEPAKOTE. LAB NOTIFIED OF STAT LABS.
[2024-09-26] MEDS: divalproex DR 500 mg Tablet 1500 MG PO (18:25)
--- NOTE | 2024-09-26 19:27 | PC.NURSE ---
PT BP 72/51, PT SLEEPING AND HARD TO AROUSE BUT DID WAKE UP AND INSTRUCTED TO DRINK. RECHECKED BP AND IT DID GO UP TO 111/61 AND THEN TO 119/66. INFORMED DR. FARRELL OF BP NO ORDERS RECEIVED.
[2024-09-26 20:00] VITALS: BP 112/69; PULSE 78; RESP 16; TEMP 37.1; O2SAT 98
[2024-09-26] MEDS: haloperidol 5 mg Tablet PO (20:01)
[2024-09-26 20:24] LABS: Valproic Acid Level 103.3 ug/mL (50-100)
--- NOTE | 2024-09-26 20:52 | PC.NURSE ---
Call placed to Dr. Zayas to inform him of pt.'s Depakote level. of 103.3. Dr. Zayas said to give the 2100 dose of Depakote and will re check level in the am prior to the 0900 dose given.
[2024-09-27] VITALS (7 sets, daily range): BP systolic 102–142; BP diastolic 61–81; PULSE 69–94; RESP 16–18; TEMP 36.4–37.1; O2SAT 94–96
--- NOTE | 2024-09-27 07:25 | W.PM.NPUPNS ---
Subjective NPU Subjective: Patient presented today reporting that things were fine. We discussed the risks, benefits and alternatives of making a change to his Depakote and he understood and agreed to proceed as is documented in this note. We discussed that his Depakote levels were elevated and that likely there was no need for more than the 1500 mg twice a day instead of 3 times a day. We also discussed moving to a antipsychotic that is easier to manage dose estevez and starting Invega 3 mg p.o. daily and he understood and agreed to proceed as is documented in this note. He denied any side effects to his medication. Mental Status Exam MSE Comments: This is an obese white male, with hospital scrubs on, disheveled with limited eye contact looking slightly older than his stated age. No abnormal movements except for significant psychomotor retardation. Cooperative with exam in no acute distress. Speech was decreased rate and volume and dysarthric. Mood described as okay; affect lethargic. Thought process, mostly linear. Thought content: patient denied suicidal or homicidal ideation, there were no delusions reported or noted, patient denied any auditory or visual hallucinations. Attention and concentration appeared intact, and memory appears reliable but there are discrepancies between his reports and reports of his [facility] but were not formally tested. He is arousable and oriented to person and place. Insight and judgment are impaired. Impulse control impaired, and intellectual ability appears limited versus impaired. Vitals/I&O/Wt Last Vital Signs Temp 97.7 F 09/27/24 04:00 Pulse 83 09/27/24 04:00 Resp 17 09/27/24 04:00 BP 122/81 09/27/24 04:00 Pulse Ox 96 09/27/24 04:00 O2 Del Method Room Air 09/27/24 04:00 Data NPU 09/24/24 19:33 09/24/24 19:33 A&P Assessment and plan (1) Bipolar disorder: (2) Antisocial personality disorder: (3) Intellectual disability: (4) Behavioral disorder: (5) Aggressive behavior: Plan This is a 54 year old white male with a long history of mental health issues including intellectual disability among other impulse control issues who is in a [facility] after previously being in the [facility] with recent reports of bzw-et-rceoodk behavior when he is frustrated. He is unknown to this team vet presents on multiple medications both psychiatric and others and a report of Depakote 1500 mg p.o. 3 times daily but Seroquel 75 mg daily which seems odd and we will evaluate medications and get information on the validity through the [facility] excetra. 1. Continue current medication. Given elevated Depakote level we will decrease Depakote back to 1500 p.o. twice daily. Add Invega 3 mg p.o. daily and will likely discontinue Seroquel. 2. Continue every 15 minute checks for safety. 3. Encourage individual, group and milieu therapies. 4. Get collateral information. 5. Evaluate against the backdrop of 96-hour hold. PDMP PDMP Reviewed: Not Reviewed Involuntary Hold Information Hold Status: Legal Status: Active Guardianship Date/Time Hold Expires: 10/01/2024 Attestations NPU Medical Necessity Statement*: Inpatient hospitalization is medically necessary and the clinically appropriate intervention at this time. We will monitor medications and make changes as indicated. His likely length of stay is 3-5 days. Coding Level of Care Code Acute Code for [facility] Diagnoses Bipolar disorder F31.9 Antisocial personality disorder F60.2 Intellectual disability F79 Behavioral disorder Aggressive behavior R46.89
[2024-09-27] MEDS: lactobacillus 1 Tablet 1 TAB PO (08:30)
[2024-09-27] MEDS: BuSPIRONE 10 mg Tablet PO ×2 (08:30→17:45)
[2024-09-27] MEDS: polyethylene glycol 3350 Pkt 17 gm PO (08:30)
[2024-09-27] MEDS: dicyclomine 10 mg Capsule PO ×3 (08:31→21:18)
[2024-09-27] MEDS: pantoprazole DR 40 mg Tablet PO (08:31)
[2024-09-27] MEDS: aspirin 81 mg EC Tablet PO (08:31)
[2024-09-27] MEDS: quetiapine 25 mg Tablet PO (08:31)
[2024-09-27] MEDS: quetiapine 25 mg Tablet 50 MG PO (08:31)
[2024-09-27] MEDS: meloxicam 7.5 mg tablet 15 MG PO (08:31)
[2024-09-27] MEDS: metoprolol tartrate 25 mg Tablet PO ×2 (08:31→17:45)
[2024-09-27] MEDS: citalopram 20 mg Tablet 40 MG PO (08:31)
[2024-09-27] MEDS: tamsulosin 0.4 mg Capsule PO (08:31)
[2024-09-27 09:05] LABS: Valproic Acid Level 114.7 ug/mL (50-100)
--- NOTE | 2024-09-27 09:59 | PC.NURSE ---
This nurse notified Dr. Zayas via telephone of patient's elevated valproic acid level. Dr. Zayas gave verbal to give a one-time dose of depakote 1000mg now, then change depakote from TID to BID, with patient getting second dose at bedtime.
[2024-09-27] MEDS: divalproex DR 500 mg Tablet 1000 MG PO (11:17)
[2024-09-27] MEDS: hyDROXYzine 25 mg Capsule 50 MG PO (12:50)
--- NOTE | 2024-09-27 12:51 | PC.NURSE ---
Anxiety Patient rates anxiety 01/06. Administered vistaril 50mg PO
[2024-09-27] MEDS: blistex lip oint 7 gm Tube 1 APPLIC TOPICAL (17:46)
[2024-09-27] MEDS: HYDROXYZINE HCL 25 MG 25 EACH PO (17:49)
[2024-09-27] MEDS: paliperidone ER 3 mg Tablet PO (21:18)
[2024-09-27] MEDS: ATORVASTATIN 10 MG TABLET 20 MG PO (21:19)
[2024-09-27] MEDS: divalproex DR 500 mg Tablet 1500 MG PO (21:24)
[2024-09-27] MEDS: hyDROXYzine 25 mg Capsule PO (21:25)
[2024-09-27] MEDS: trazodone 50 mg Tablet PO (23:24)
[2024-09-28 06:00] VITALS: BP 114/52; PULSE 90; RESP 18; TEMP 36.7; O2SAT 94
[2024-09-28] MEDS: aspirin 81 mg EC Tablet PO (08:31)
[2024-09-28] MEDS: lactobacillus 1 Tablet 1 TAB PO (08:31)
[2024-09-28] MEDS: polyethylene glycol 3350 Pkt 17 gm PO (08:31)
[2024-09-28] MEDS: divalproex DR 500 mg Tablet 1500 MG PO ×2 (08:31→20:32)
[2024-09-28] MEDS: meloxicam 7.5 mg tablet 15 MG PO (08:31)
[2024-09-28] MEDS: quetiapine 25 mg Tablet 50 MG PO (08:31)
[2024-09-28] MEDS: BuSPIRONE 10 mg Tablet PO ×2 (08:32→18:13)
[2024-09-28] MEDS: tamsulosin 0.4 mg Capsule PO (08:32)
[2024-09-28] MEDS: pantoprazole DR 40 mg Tablet PO (08:32)
[2024-09-28] MEDS: quetiapine 25 mg Tablet PO (08:32)
[2024-09-28] MEDS: citalopram 20 mg Tablet 40 MG PO (08:32)
[2024-09-28] MEDS: dicyclomine 10 mg Capsule PO ×3 (08:32→20:32)
[2024-09-28] MEDS: metoprolol tartrate 25 mg Tablet PO ×2 (08:32→18:13)
[2024-09-28 14:00] VITALS: BP 122/79; PULSE 87; RESP 15; TEMP 37.1; O2SAT 97
--- NOTE | 2024-09-28 17:26 | W.PM.NPUPNS ---
Subjective NPU Subjective: Patient presented today reporting that he is feeling better. He reports he is tolerating the medication well and denied any significant issues. He reports tolerating the decrease in his Depakote as well. We discussed the likelihood of discharge on Tuesday as we continue to titrate his medication over the weekend. He denied any side effects to the medication. Mental Status Exam MSE Comments: This is an obese white male, with hospital scrubs on, disheveled with limited eye contact looking slightly older than his stated age. No abnormal movements except for significant psychomotor retardation. Cooperative with exam in no acute distress. Speech was decreased rate and volume and dysarthric. Mood described as okay; affect lethargic. Thought process, mostly linear. Thought content: patient denied suicidal or homicidal ideation, there were no delusions reported or noted, patient denied any auditory or visual hallucinations. Attention and concentration appeared intact, and memory appears reliable but there are discrepancies between his reports and reports of his [facility] but were not formally tested. He is arousable and oriented to person and place. Insight and judgment are impaired. Impulse control impaired, and intellectual ability appears limited versus impaired. Vitals/I&O/Wt Last Vital Signs Temp 98.2 F 09/28/24 20:08 Pulse 89 09/28/24 20:08 Resp 18 09/28/24 20:08 BP 104/67 09/28/24 20:08 Pulse Ox 96 09/28/24 20:08 O2 Del Method Room Air 09/28/24 06:00 Data NPU 09/24/24 19:33 09/24/24 19:33 A&P Assessment and plan (1) Bipolar disorder: (2) Antisocial personality disorder: (3) Intellectual disability: (4) Behavioral disorder: (5) Aggressive behavior: Plan This is a 54 year old white male with a long history of mental health issues including intellectual disability among other impulse control issues who is in a [facility] after previously being in the [facility] with recent reports of [id number]-vn-liiiwml behavior when he is frustrated. He is unknown to this team vet presents on multiple medications both psychiatric and others and a report of Depakote 1500 mg p.o. 3 times daily but Seroquel 75 mg daily which seems odd and we will evaluate medications and get information on the validity through the [facility] excetra. 1. Continue current medication. Given elevated Depakote level we will decrease Depakote back to 1500 p.o. twice daily. Added Invega 3 mg p.o. daily and will likely discontinue Seroquel. Increase Invega to 6 mg p.o. daily. 2. Continue every 15 minute checks for safety. 3. Encourage individual, group and milieu therapies. 4. Get collateral information. 5. Evaluate against the backdrop of 96-hour hold. PDMP PDMP Reviewed: Not Reviewed Involuntary Hold Information Hold Status: Legal Status: Active Guardianship Date/Time Hold Expires: 10/01/2024 Attestations NPU Medical Necessity Statement*: Inpatient hospitalization is medically necessary and the clinically appropriate intervention at this time. We will monitor medications and make changes as indicated. His likely length of stay is 3-4days. Coding Level of Care Code Acute Code for [facility] Fwd Diagnoses Bipolar disorder F31.9 Antisocial personality disorder F60.2 Intellectual disability F79 Behavioral disorder Aggressive behavior R46.89
[2024-09-28] MEDS: hyDROXYzine 25 mg Capsule PO (18:26)
[2024-09-28 20:08] VITALS: BP 104/67; PULSE 89; RESP 18; TEMP 36.8; O2SAT 96
[2024-09-28] MEDS: ATORVASTATIN 10 MG TABLET 20 MG PO (20:32)
[2024-09-28] MEDS: trazodone 50 mg Tablet PO (20:32)
[2024-09-29] MEDS: alum-mag-hydroxide-sime 30 mL UDC PO (02:19)
[2024-09-29 06:00] VITALS: BP 140/88; PULSE 102; RESP 16; O2SAT 97
[2024-09-29] MEDS: dicyclomine 10 mg Capsule PO ×3 (08:51→21:14)
[2024-09-29] MEDS: aspirin 81 mg EC Tablet PO (08:51)
[2024-09-29] MEDS: tamsulosin 0.4 mg Capsule PO (08:51)
[2024-09-29] MEDS: citalopram 20 mg Tablet 40 MG PO (08:52)
[2024-09-29] MEDS: quetiapine 25 mg Tablet 50 MG PO (08:52)
[2024-09-29] MEDS: divalproex DR 500 mg Tablet 1500 MG PO ×2 (08:52→21:14)
[2024-09-29] MEDS: lactobacillus 1 Tablet 1 TAB PO (08:52)
[2024-09-29] MEDS: quetiapine 25 mg Tablet PO (08:52)
[2024-09-29] MEDS: BuSPIRONE 10 mg Tablet PO ×2 (08:52→17:12)
[2024-09-29] MEDS: metoprolol tartrate 25 mg Tablet PO ×2 (08:52→17:12)
[2024-09-29] MEDS: pantoprazole DR 40 mg Tablet PO (08:52)
[2024-09-29] MEDS: paliperidone ER 6 mg Tablet PO (08:52)
[2024-09-29] MEDS: meloxicam 7.5 mg tablet 15 MG PO (08:52)
[2024-09-29] MEDS: polyethylene glycol 3350 Pkt 17 gm PO (08:53)
[2024-09-29] MEDS: blistex lip oint 7 gm Tube 1 APPLIC TOPICAL (09:21)
[2024-09-29] MEDS: neomycin-poly-bacitracin oint 28 gm 1 APPLIC TOPICAL (11:49)
--- NOTE | 2024-09-29 11:49 | PC.NURSE ---
Neosporin Small amount of neosporin applied to a closed wound where patient had a boil in the past. No redness, swelling, drainage, or foul odors. Band-Aid applied.
[2024-09-29 14:00] VITALS: BP 116/77; PULSE 93; RESP 20; TEMP 36.5; O2SAT 99
--- NOTE | 2024-09-29 16:39 | W.PM.NPUPNS ---
Subjective NPU Subjective: Patient presented today reporting that he is doing better. He is very focused on a patient that had been moved to the other side wanting to continue his conversation and interactions with her. Otherwise he was reasonable on the unit per staff reports and direct observation he was endorsing things going better and him feeling like he could manage his impulse control feeling more mellow on the Invega. We discussed the likelihood of discharge on Tuesday but that Dr. Connelly would return tomorrow and be making independent decisions. He denied any side effects to the medication. Mental Status Exam MSE Comments: This is an obese white male, with hospital scrubs on, disheveled with limited eye contact looking slightly older than his stated age. No abnormal movements except for significant psychomotor retardation. Cooperative with exam in no acute distress. Speech was decreased rate and volume and dysarthric. Mood described as okay; affect lethargic. Thought process, mostly linear. Thought content: patient denied suicidal or homicidal ideation, there were no delusions reported or noted, patient denied any auditory or visual hallucinations. Attention and concentration appeared intact, and memory appears reliable but there are discrepancies between his reports and reports of his long term but were not formally tested. He is arousable and oriented to person and place. Insight and judgment are impaired. Impulse control impaired, and intellectual ability appears limited versus impaired. Vitals/I&O/Wt Last Vital Signs Temp 97.7 F 09/29/24 14:00 Pulse 93 09/29/24 14:00 Resp 20 H 09/29/24 14:00 BP 116/77 09/29/24 14:00 Pulse Ox 99 09/29/24 14:00 O2 Del Method Room Air 09/29/24 14:00 Data NPU 09/24/24 19:33 09/24/24 19:33 A&P Assessment and plan (1) Bipolar disorder: (2) Antisocial personality disorder: (3) Intellectual disability: (4) Behavioral disorder: (5) Aggressive behavior: Plan This is a 54 year old white male with a long history of mental health issues including intellectual disability among other impulse control issues who is in a long term after previously being in the [facility] with recent reports of rnl-bv-sleimcl behavior when he is frustrated. He is unknown to this team vet presents on multiple medications both psychiatric and others and a report of Depakote 1500 mg p.o. 3 times daily but Seroquel 75 mg daily which seems odd and we will evaluate medications and get information on the validity through the [facility] excetra. 1. Continue current medication. Given elevated Depakote level we will decrease Depakote back to 1500 p.o. twice daily. Added Invega 3 mg p.o. daily and will likely discontinue Seroquel. Increased Invega to 6 mg p.o. daily. 2. Continue every 15 minute checks for safety. 3. Encourage individual, group and milieu therapies. 4. Get collateral information. 5. Evaluate against the backdrop of 96-hour hold. PDMP PDMP Reviewed: Not Reviewed Involuntary Hold Information Hold Status: Legal Status: Active Guardianship Date/Time Hold Expires: 10/01/2024 Attestations NPU Medical Necessity Statement*: Inpatient hospitalization is medically necessary and the clinically appropriate intervention at this time. We will monitor medications and make changes as indicated. His likely length of stay is days. Coding Level of Care Code Acute Code for [facility] Diagnoses Bipolar disorder F31.9 Antisocial personality disorder F60.2 Intellectual disability F79 Behavioral disorder Aggressive behavior R46.89
[2024-09-29] MEDS: acetaminophen 325 mg Tablet 650 MG PO (17:12)
[2024-09-29] MEDS: fluticasone nasal spray 16gm Btl 2 SPRAY NASAL (17:12)
[2024-09-29] MEDS: ATORVASTATIN 10 MG TABLET 20 MG PO (21:14)
[2024-09-29] MEDS: trazodone 50 mg Tablet PO (21:14)
[2024-09-29] MEDS: hyDROXYzine 25 mg Capsule PO (21:15)
[2024-09-29 22:00] VITALS: BP 130/83; PULSE 92; RESP 18; TEMP 37; O2SAT 93
[2024-09-30] MEDS: OLANZapine 5 mg ODT PO (01:48)
[2024-09-30] MEDS: simethicone 80 mg Chew PO (01:48)
[2024-09-30 06:00] VITALS: RESP 18
--- NOTE | 2024-09-30 06:46 | PC.NURSE ---
patient refused charge nurse notified.
[2024-09-30] MEDS: polyethylene glycol 3350 Pkt 17 gm PO (08:59)
[2024-09-30] MEDS: dicyclomine 10 mg Capsule PO ×3 (09:00→20:33)
[2024-09-30] MEDS: paliperidone ER 6 mg Tablet PO (09:00)
[2024-09-30] MEDS: aspirin 81 mg EC Tablet PO (09:00)
[2024-09-30] MEDS: tamsulosin 0.4 mg Capsule PO (09:00)
[2024-09-30] MEDS: BuSPIRONE 10 mg Tablet PO ×2 (09:00→17:32)
[2024-09-30] MEDS: lactobacillus 1 Tablet 1 TAB PO (09:00)
[2024-09-30] MEDS: citalopram 20 mg Tablet 40 MG PO (09:00)
[2024-09-30] MEDS: pantoprazole DR 40 mg Tablet PO (09:02)
[2024-09-30] MEDS: metoprolol tartrate 25 mg Tablet PO ×2 (09:02→17:32)
[2024-09-30] MEDS: quetiapine 25 mg Tablet 50 MG PO (09:02)
[2024-09-30] MEDS: fluticasone nasal spray 16gm Btl 2 SPRAY NASAL ×2 (09:02→17:31)
[2024-09-30] MEDS: ibuprofen 600 mg Tablet PO ×2 (09:07→22:42)
[2024-09-30] MEDS: meloxicam 7.5 mg tablet 15 MG PO (09:07)
[2024-09-30] MEDS: divalproex DR 500 mg Tablet 1500 MG PO ×2 (09:20→20:33)
[2024-09-30 14:00] VITALS: RESP 17
--- NOTE | 2024-09-30 17:43 | P.NPUPN_ITS ---
Subjective NPU 2 Subjective: 54-year-old male with a history of intel lectual disability along with for impulse control admitted with increased aggression in his [facility]. The patient was continuing to complain about feeling tired. He had been isolative on the milieu. There was no acts of aggression noted. He had stated that he was hopeful about going back to the [facility] in the next few days. He had reported no side effects from his medication regimen. Mental Status Exam 2 MSE Comments: This is an obese white male, with hospital scrubs on, disheveled with limited eye contact looking slightly older than his stated age. No abnormal movements except for significant psychomotor retardation. Cooperative with exam in no acute distress. Speech was decreased rate and volume and dysarthric. Mood described as okay; affect was restricted. Thought process was linear and logical. Thought content: patient denied suicidal or homicidal ideation, there were no delusions reported or noted, patient denied any auditory or visual hallucinations. Attention and concentration appeared intact, and memory appears reliable but there are discrepancies between his reports and reports of his [place] [facility] but were not formally tested. He is arousable and oriented to person and place. Insight and judgment are impaired. Impulse control is poor. Patient's intellectual ability appears limited versus impaired. Vitals/I&O/Wt Last Vital Signs Temp 98.6 F 09/29/24 22:00 Pulse 92 09/29/24 22:00 Resp 18 09/30/24 06:00 BP 130/83 09/29/24 22:00 Pulse Ox 93 09/29/24 22:00 O2 Del Method Room Air 09/29/24 14:00 Weight last 48 hrs Weight 97.432 kg Data NPU 09/24/24 19:33 09/24/24 19:33 A&P Assessment and plan (1) Bipolar disorder: (2) Antisocial personality disorder: (3) Intellectual disability: (4) Behavioral disorder: (5) Aggressive behavior: Plan This is a 54 year old white male with a long history of mental health issues including intellectual disability among other impulse control issues who is in a [place] [facility] after previously being in the [facility] with recent reports of [id number] behavior when he is frustrated. He is unknown to this team vet presents on multiple medications both psychiatric and others and a report of Depakote 1500 mg p.o. 3 times daily but Seroquel 75 mg daily which seems odd and we will evaluate medications and get information on the validity through the [facility] excetra. 1. Continue current medication. Continue Depakote DR 1500mg bid, will get depakote level on 10/02/24. Continue Invega to 6 mg p.o. daily. Continue Seroquel 75mg daily, D/C Buspar. 2. Continue every 15 minute checks for safety. 3. Encourage individual, group and milieu therapies. 4. Get collateral information. 5. Evaluate against the backdrop of 96-hour hold. PDMP PDMP Reviewed: Not Reviewed Involuntary Hold Information 2 Hold Status: Legal Status: Active Guardianship Date/Time Hold Expires: Attestations NPU 2 Medical Necessity Statement*: Inpatient hospitalization is medically necessary and the clinically appropriate intervention at this time. We will monitor medications and make changes as indicated. His likely length of stay is 2-3 days. Coding Level of Care Code Acute Code for [facility] Fwd Diagnoses Bipolar disorder F31.9 Antisocial personality disorder F60.2 Intellectual disability F79 Behavioral disorder Aggressive behavior R46.89
[2024-09-30] MEDS: hyDROXYzine 25 mg Capsule PO (20:33)
[2024-09-30] MEDS: trazodone 50 mg Tablet PO ×2 (20:33→22:42)
[2024-09-30] MEDS: ATORVASTATIN 10 MG TABLET 20 MG PO (20:34)
[2024-09-30 21:07] VITALS: BP 127/81; PULSE 74; RESP 18; TEMP 36.4; O2SAT 96
--- NOTE | 2024-09-30 21:09 | PC.NURSE ---
Pt. had a BM in his depends. Roommate very upset. Moved pt. to another room d/t this.
--- NOTE | 2024-10-01 01:48 | PC.NURSE ---
Pt. was incontinent of bladder just now, sheets and clothing changed per staff.
[2024-10-01 06:00] VITALS: BP 107/61; PULSE 82; RESP 16; TEMP 36.9; O2SAT 96
[2024-10-01] MEDS: dicyclomine 10 mg Capsule PO ×3 (09:35→20:49)
[2024-10-01] MEDS: citalopram 20 mg Tablet 40 MG PO (09:35)
[2024-10-01] MEDS: paliperidone ER 6 mg Tablet PO (09:35)
[2024-10-01] MEDS: meloxicam 7.5 mg tablet 15 MG PO (09:35)
[2024-10-01] MEDS: tamsulosin 0.4 mg Capsule PO (09:35)
[2024-10-01] MEDS: aspirin 81 mg EC Tablet PO (09:35)
[2024-10-01] MEDS: divalproex DR 500 mg Tablet 1500 MG PO ×2 (09:35→21:52)
[2024-10-01] MEDS: metoprolol tartrate 25 mg Tablet PO ×2 (09:36→17:17)
[2024-10-01] MEDS: lactobacillus 1 Tablet 1 TAB PO (09:36)
[2024-10-01] MEDS: quetiapine 25 mg Tablet 75 MG PO (09:36)
[2024-10-01] MEDS: fluticasone nasal spray 16gm Btl 2 SPRAY NASAL (09:37)
[2024-10-01] MEDS: pantoprazole DR 40 mg Tablet PO (09:37)
[2024-10-01 14:00] VITALS: BP 117/77; PULSE 98; RESP 14; TEMP 36.6; O2SAT 93
[2024-10-01] MEDS: ibuprofen 600 mg Tablet PO (15:54)
--- NOTE | 2024-10-01 17:36 | W.PM.NPUPNS ---
Subjective NPU Subjective: 54-year-old male with a history of intellectual disability along with for impulse control admitted with increased aggression in his U[facility]. Patient had been having continued aggression at the senior living, exposing self to others. Patient showed evidence of poor ability to manage self care. Records were reviewed. Patient remains on multiple medications. He has not been aggressive or assaultive on the unit. He continues to appeared to require help with encopresis and enuresis. Mental Status Exam MSE Comments: This is an obese white male, with hospital scrubs on, disheveled, malodorous with stench of feces and urine in room. He has limited eye contact looking slightly older than his stated age. No abnormal movements except for significant psychomotor retardation. Cooperative with exam in no acute distress. Speech was decreased rate and volume and dysarthric. Mood described as okay; affect was restricted. Thought process was linear and logical. Thought content: patient denied suicidal or homicidal ideation, there were no delusions reported or noted, patient denied any auditory or visual hallucinations. Attention and concentration appeared intact, and memory appears reliable but there are discrepancies between his reports and reports of his senior living but were not formally tested. He is minimally arousable and oriented to person and place. Insight and judgment are impaired. Impulse control is poor. Patient's intellectual ability appears limited versus impaired. Vitals/I&O/Wt Last Vital Signs Temp 98 F 10/01/24 14:00 Pulse 98 10/01/24 14:00 Resp 14 10/01/24 14:00 BP 117/77 10/01/24 14:00 Pulse Ox 93 10/01/24 14:00 O2 Del Method Room Air 10/01/24 14:00 10/01/24 10/01/24 10/01/24 06:59 14:59 22:59 Intake Total 1440 / 1440 Balance 1440 / 1440 Weight last 48 hrs Weight 97.432 kg Data NPU 09/24/24 19:33 09/24/24 19:33 A&P Assessment and plan (1) Bipolar disorder: (2) Antisocial personality disorder: (3) Intellectual disability: (4) Behavioral disorder: (5) Aggressive behavior: Plan This is a 54 year old white male with a long history of mental health issues including intellectual disability among other impulse control issues who is in a senior living after previously being in the [facility] with recent reports of [id number] behavior when he is frustrated. He is unknown to this team vet presents on multiple medications both psychiatric and others and a report of Depakote 1500 mg p.o. 3 times daily but Seroquel 75 mg daily which seems odd and we will evaluate medications and get information on the validity through the [facility] excetra. 1. Continue with plan to simplify medication regimen. Continue Depakote DR 1500mg bid, will get depakote level on 10/02/24. Continue Invega to 6 mg p.o. daily. Discontinue Seroquel 75mg daily. Discontinue buspar. Continue celexa 40mg daily. 2. Continue every 15 minute checks for safety. 3. Encourage individual, group and milieu therapies. 4. Get collateral information. 5. Evaluate against the backdrop of 96-hour hold. PDMP PDMP Reviewed: Not Reviewed Involuntary Hold Information Hold Status: Legal Status: Active Guardianship Date/Time Hold Expires: 10/01/2024 Attestations NPU Medical Necessity Statement*: Inpatient hospitalization is medically necessary and the clinically appropriate intervention at this time. We will monitor medications and make changes as indicated. His likely length of stay is 2-3 days. Coding Level of Care Code Acute Code for g Fwd Diagnoses Bipolar disorder F31.9 Antisocial personality disorder F60.2 Intellectual disability F79 Behavioral disorder Aggressive behavior R46.89
[2024-10-01 20:35] VITALS: BP 110/79; PULSE 92; RESP 18; TEMP 36.8; O2SAT 94
[2024-10-01] MEDS: hyDROXYzine 25 mg Capsule PO (20:49)
[2024-10-01] MEDS: trazodone 50 mg Tablet PO (20:49)
[2024-10-01] MEDS: ATORVASTATIN 10 MG TABLET 20 MG PO (20:49)
[2024-10-02 06:00] VITALS: BP 119/84; PULSE 103; RESP 18; TEMP 37.1; O2SAT 97
[2024-10-02] MEDS: meloxicam 7.5 mg tablet 15 MG PO (09:07)
[2024-10-02] MEDS: dicyclomine 10 mg Capsule PO ×3 (09:07→20:54)
[2024-10-02] MEDS: pantoprazole DR 40 mg Tablet PO (09:07)
[2024-10-02] MEDS: citalopram 20 mg Tablet 40 MG PO (09:07)
[2024-10-02] MEDS: aspirin 81 mg EC Tablet PO (09:07)
[2024-10-02] MEDS: paliperidone ER 6 mg Tablet PO (09:07)
[2024-10-02] MEDS: tamsulosin 0.4 mg Capsule PO (09:08)
[2024-10-02] MEDS: fluticasone nasal spray 16gm Btl 2 SPRAY NASAL ×2 (09:08→17:56)
[2024-10-02] MEDS: metoprolol tartrate 25 mg Tablet PO ×2 (09:08→17:56)
[2024-10-02] MEDS: lactobacillus 1 Tablet 1 TAB PO (09:08)
[2024-10-02] MEDS: divalproex DR 500 mg Tablet 1500 MG PO ×2 (09:11→21:30)
[2024-10-02] MEDS: polyethylene glycol 3350 Pkt 17 gm PO (09:23)
[2024-10-02 14:00] VITALS: BP 119/68; PULSE 94; RESP 17; TEMP 36.7; O2SAT 93
[2024-10-02] MEDS: acetaminophen 325 mg Tablet 650 MG PO (15:43)
--- NOTE | 2024-10-02 16:19 | P.NPUPN_ITS ---
Subjective NPU 2 Subjective: 54-year-old male with a history of intel lectual disability along with for impulse control admitted with increased aggression in his Care Home. The patient had no episodes of aggression noted here. He had reported that he was feeling better on his medications. He had been more interactive and appeared to spend less time in his bed. He had continued to require some prompting for completion of activities of daily living. He had reported that he felt ready to return to the custodial tomorrow. Mental Status Exam 2 MSE Comments: This is an obese white male, with hospital scrubs on, with improved hygiene today. He has fair eye contact looking slightly older than his stated age. No abnormal movements except for significant psychomotor retardation. Cooperative with exam in no acute distress. Speech was more productive in rate and volume and dysarthric. Mood described as better. Affect was brighter today. Thought process was linear and logical. Thought content: patient denied suicidal or homicidal ideation, there were no delusions reported or noted, patient denied any auditory or visual hallucinations. Attention and concentration appeared intact, and memory appears reliable but there are discrepancies between his reports and reports of his custodial but were not formally tested. He was alert and oriented to person and place. Insight and judgment are impaired. Impulse control is fair. Patient's intellectual ability appears limited versus impaired. Vitals/I&O/Wt Last Vital Signs Temp 98.0 F 10/02/24 14:00 Pulse 94 10/02/24 14:00 Resp 17 10/02/24 14:00 BP 119/68 10/02/24 14:00 Pulse Ox 93 10/02/24 14:00 O2 Del Method Room Air 10/02/24 06:00 Data NPU 09/24/24 19:33 09/24/24 19:33 A&P PDMP PDMP Reviewed: Not Reviewed Involuntary Hold Information 2 Hold Status: Legal Status: Active Guardianship Date/Time Hold Expires: Attestations NPU 2 Medical Necessity Statement*: Inpatient hospitalization is medically necessary and the clinically appropriate intervention at this time. We will monitor medications and make changes as indicated. His likely length of stay is 1-2 days. Coding Level of Care Code Acute Code for Cedric Benavidez
[2024-10-02 20:43] VITALS: BP 122/72; PULSE 92; RESP 18; TEMP 36.5; O2SAT 95
[2024-10-02] MEDS: ATORVASTATIN 10 MG TABLET 20 MG PO (20:52)
[2024-10-02] MEDS: trazodone 50 mg Tablet PO (20:52)
[2024-10-02] MEDS: hyDROXYzine 25 mg Capsule PO (20:54)
[2024-10-03 06:00] VITALS: BP 128/76; PULSE 99; RESP 18; TEMP 36.7; O2SAT 96
[2024-10-03] MEDS: fluticasone nasal spray 16gm Btl 2 SPRAY NASAL (08:14)
[2024-10-03] MEDS: aspirin 81 mg EC Tablet PO (08:14)
[2024-10-03] MEDS: polyethylene glycol 3350 Pkt 17 gm PO (08:14)
[2024-10-03] MEDS: metoprolol tartrate 25 mg Tablet PO (08:15)
[2024-10-03] MEDS: pantoprazole DR 40 mg Tablet PO (08:15)
[2024-10-03] MEDS: lactobacillus 1 Tablet 1 TAB PO (08:15)
[2024-10-03] MEDS: dicyclomine 10 mg Capsule PO ×2 (08:15→15:36)
[2024-10-03] MEDS: meloxicam 7.5 mg tablet 15 MG PO (08:15)
[2024-10-03] MEDS: tamsulosin 0.4 mg Capsule PO (08:15)
[2024-10-03] MEDS: paliperidone ER 6 mg Tablet PO (08:15)
[2024-10-03] MEDS: citalopram 20 mg Tablet 40 MG PO (08:15)
[2024-10-03 08:16] LABS: Alanine Aminotransferase 24 U/L (0-41); Albumin Level 3.5 g/dL (3.5-5.2); Alkaline Phosphatase 55 U/L (40-130); Aspartate Amino Transferase 21 U/L (0-40); Globulin 1.9 g/dL (1.3-4.6); Total Bilirubin 0.2 mg/dL (0.15-1.2); Total Protein 5.4 g/dL (6.6-8.7); Valproic Acid Level 96.1 ug/mL (50-100)
[2024-10-03] MEDS: divalproex DR 500 mg Tablet 1500 MG PO (09:09)
--- NOTE | 2024-10-03 10:11 | DCPLANNER ---
Imm was given to pt and rights explained and placed in his discharge. Copy placed in pts file.
--- NOTE | 2024-10-03 11:23 | PC.NURSE ---
Called report to Yasmine at [facility]. Let her know pt depakote levels and the med changes of his depakote.
[2024-10-03] MEDS: acetaminophen 325 mg Tablet 650 MG PO (12:44)
[2024-10-03 14:00] VITALS: BP 122/85; PULSE 95; RESP 17; TEMP 36.7; O2SAT 95
[2024-10-03 15:42] VITALS: BP 122/85; PULSE 95; RESP 17; TEMP 36.7; O2SAT 95
== END 2024-10-03 16:08 | disposition skilled nursing facility (03) | DRG 886 ==
LOC: ER 09-25 14:28 → NP 09-25 14:37
PROVIDERS: Emergency Medicine; Admitting Provider Psychiatry & Neurology Psychiatry; Emergency Provider Family Medicine; PCP Student in an Organized Health Care Education/Training Program; Visit Provider Psychiatry & Neurology Psychiatry
DX: F63.9 Impulse disorder, unspecified (principal); F79 Unspecified intellectual disabilities; F91.1 Conduct disorder, childhood-onset type; E66.9 Obesity, unspecified; Z68.34 Body mass index [BMI] 34.0-34.9, adult; I10 Essential (primary) hypertension; F31.9 Bipolar disorder, unspecified; F91.9 Conduct disorder, unspecified
CPT/HCPCS: 36415; 80053; 80076; 80164; 80306; 80307; 81001; 84443; 85025; 87486; 87581; 87633; 93005; 97150; 97165; 99285; J9999

== ENCOUNTER 2025-02-16 17:25 | Inpatient (IN) | payer MEDICARE, MEDICAID, SELFPAY ==
[2025-02-16 17:25] VITALS: BP 155/110; PULSE 81; RESP 18; TEMP 36.7; O2SAT 96
--- NOTE | 2025-02-16 17:39 | W.ED.PSYCHS ---
HPI - Psych General: Chief Complaint: Psychiatric Symptoms Stated Complaint: mhe Time Seen by Provider: 02/16/25 17:29 History of Present Illness: Patient is a 54-year-old gentleman with known schizophrenia that presents to the ED with hallucinations. He states that he keeps seeing demons. He does have chronic memory loss. His last psychiatric admission was in September. Patient states he is not suicidal, no plan, no fleeting thoughts, not homicidal. He stated that he did lash out to someone at the prison verbally, and has apologized multiple times because he feels bad for that. He wants to go to the psychiatric [facility] because he would like to fix this issue, and never wants to lash out at anyone. Associated symptoms: Reports auditory hallucinations and visual hallucinations; Deny homicidal ideation or suicidal ideation Related Data Home Medications ?Medication ?Instructions ?Recorded ?Confirmed Lactobacillus acidophilus 1 tab PO DAILY 09/25/24 09/25/24 (Acidophilus chewable tablet) acetaminophen 500 mg tablet 1,000 mg PO Q6H PRN Pain 09/25/24 09/25/24 aluminum-mag hydroxide-simethicone 30 ml PO Q4H PRN Constipation 09/25/24 09/25/24 200 mg-200 mg-20 mg/5 mL oral susp (Xenia-Lanta) aspirin 81 mg tablet,delayed 81 mg PO DAILY 09/25/24 09/25/24 release atorvastatin 20 mg tablet 20 mg PO DAILY 09/25/24 09/25/24 bisacodyl 10 mg rectal suppository 10 mg SD DAILY PRN Constipation 09/25/24 09/25/24 citalopram 40 mg tablet 40 mg PO DAILY 09/25/24 09/25/24 dicyclomine 10 mg capsule 10 mg PO TID 09/25/24 09/25/24 ergocalciferol (vitamin D2) 1,250 1,250 mcg PO DAILY 09/25/24 09/25/24 mcg (50,000 unit) capsule hydroxyzine HCl 25 mg tablet 25 mg PO QPM 09/25/24 09/25/24 loperamide 2 mg tablet 2 mg PO Q6H PRN Constipation 09/25/24 09/25/24 magnesium hydroxide 400 mg/5 mL 30 ml PO DAILY 09/25/24 09/25/24 oral suspension (Milk of Magnesia) meloxicam 15 mg tablet 15 mg PO DAILY 09/25/24 09/25/24 metoprolol tartrate 25 mg tablet 25 mg PO BID 09/25/24 09/25/24 omeprazole 20 mg capsule,delayed 20 mg PO DAILY 09/25/24 09/25/24 release polyethylene glycol 3350 17 17 g PO DAILY 09/25/24 09/25/24 gram/dose oral powder (Miralax) simethicone 80 mg chewable tablet 80 mg PO Q6H 09/25/24 09/25/24 tamsulosin 0.4 mg capsule 0.4 mg PO DAILY 09/25/24 09/25/24 triamcinolone acetonide 0.1 % 1 applic topical BID 09/25/24 09/25/24 topical cream Previous Rx's ?Medication ?Instructions ?Recorded divalproex 500 mg tablet,delayed 1,500 mg (3 x 500 mg) PO 0900,2100 10/03/24 release 30 days #180 tabs paliperidone 6 mg tablet,extended 6 mg PO DAILY 30 days #30 tabs 10/03/24 release 24 hr Allergies Allergy/AdvReac Type Severity Reaction Status Date / Time cucumber Allergy Unknown Verified 09/28/24 08:59 mushroom Allergy Unknown Verified 09/24/24 19:27 Review of Systems General: Reports: 10 or more systems reviewed and unremarkable except in HPI and below Const: Denies: fever(s) or chills Eyes: Denies: change in vision or blurry vision ENMT: Denies: throat pain or mouth pain Card: Denies: chest pain or palpitations Resp: Denies: dyspnea or non-productive cough GI: Denies: abdominal pain, nausea or vomiting : Denies: flank pain or difficulty urinating Musc: Denies: neck pain or back pain Skin/Breast: Denies: rash or pruritus Neuro: Denies: headache(s), numbness in extremities or sensory changes Psych: Reports: anxiety, mood swings, visual hallucinations and auditory hallucinations; Denies: suicidal ideation or homicidal ideation Endo: Denies: polyuria or polydipsia Jr/Lymph: Denies: easy bruising or easy bleeding Physical Exam Const: COMMON NORMALS: no acute distress, average body habitus, patient oriented x3, no limitations, healthy appearing, alert and well nourished GENERAL APPEARANCE: not lethargic ORIENTATION/CONSCIOUSNESS: Yes awake, Yes oriented to person, Yes oriented to place and Yes oriented to time; not confused, not patient obtunded and not lethargic HENMT: COMMON NORMALS: normocephalic, atraumatic and hearing grossly normal bilaterally HEAD & SCALP: normocephalic and atraumatic Neck/C-Spine: COMMON NORMALS: full ROM and no lymphadenopathy Lymph: LYMPHATIC: no lymphadenopathy noted Chest: COMMONS NORMALS: normal inspection of the chest and normal palpation of entire chest wall Resp: COMMON NORMALS: normal respiratory effort, No retractions and clear to auscultation bilaterally AUSCULTATION: clear to auscultation bilaterally Cardio: COMMON NORMALS: regular rate and regular rhythm RATE: regular rate RHYTHM: regular rhythm GI: COMMON NORMALS: Normal to inspection, nondistended, normoactive bowel sounds present, Soft to palpation, non-tender and No hepatosplenomegaly present PALPATION: Yes Soft to palpation and Yes No hepatosplenomegaly present : COMMON NORMALS: Yes no CVA tenderness BLADDER/KIDNEY EXAM: Yes no CVA tenderness Back/Pelvis: COMMON NORMALS: no CVA tenderness Neuro: COMMON NORMALS: patient oriented x3 SENSORIUM/ORIENTATION: Yes alert, Yes oriented to person, Yes oriented to place, Yes oriented to time and No lethargic Course Consultations: Consultation #1: Dr. Zayas accepted patient Vital Signs: Vital signs: Vital Signs Temperature 98.1 F 02/16/25 17:25 Pulse Rate 81 02/16/25 17:25 Respiratory Rate 18 02/16/25 17:25 Blood Pressure 155/110 02/16/25 17:25 Pulse Oximetry 96 02/16/25 17:25 Oxygen Delivery Me thod Room Air 02/16/25 17:25 MDM - Psych Medical Decision Making 54-year-old male with schizophrenia, on Depakote, paliperidone [facility] with visual and auditory hallucinations. Denies suicide, denies homicide. Admits to mood swings. Will evaluate for abdominal neuropsychiatric unit Medical Records I reviewed the patient's medical records. Lab Data I reviewed the patient's lab results. 02/16/25 17:46 02/16/25 17:46 Laboratory Results WBC 7.90 10^3/uL (3.29-11.43) 02/16/25 17:46 RBC 4.21 10^6/uL (3.85-5.65) 02/16/25 17:46 Hgb 13.30 g/dL (11.27-16.99) 02/16/25 17:46 Hct 38.8 % (37-53) 02/16/25 17:46 MCV 92.2 fl (82-101) 02/16/25 17:46 MCH 31.6 pg (27-33) 02/16/25 17:46 MCHC 34.3 g/dL (30-55) 02/16/25 17:46 RDW 12.4 % (12.1-15.1) 02/16/25 17:46 Plt Count 170 10^3/cmm (157-399) 02/16/25 17:46 MPV 9.3 fL (7.4-10.4) 02/16/25 17:46 Neut % (Auto) 55.5 % 02/16/25 17:46 Lymph % (Auto) 26.6 % 02/16/25 17:46 [place] % (Auto) 14.2 % 02/16/25 17:46 Eos % (Auto) 2.0 % 02/16/25 17:46 Baso % (Auto) 0.3 % 02/16/25 17:46 Neut # (Auto) 4.39 10^3/uL (1.8-7.7) 02/16/25 17:46 Lymph # (Auto) 2.1 10^3/uL (0.8-4.8) 02/16/25 17:46 [place] # (Auto) 1.1 10^3/uL (0.2-0.9) H 02/16/25 17:46 Eos # (Auto) 0.2 10^3/uL (0.0-0.8) 02/16/25 17:46 Baso # (Auto) 0.0 10^3/uL (0.0-0.1) 02/16/25 17:46 Nucleated RBC % (auto) 0 % 02/16/25 17:46 Nucleated RBCs # 0.0 /100WBC 02/16/25 17:46 Sodium 139 mmol/L (136-145) 02/16/25 17:46 Potassium 4.7 mmol/L (3.5-5.1) 02/16/25 17:46 Chloride 105 mmol/L (98-107) 02/16/25 17:46 Carbon Dioxide 25 mmol/L (22-29) 02/16/25 17:46 Anion Gap 13.7 (5-19) 02/16/25 17:46 BUN 21 mg/dL (6-20) H 02/16/25 17:46 Creatinine 0.8 mg/dL (0.7-1.2) 02/16/25 17:46 GFR Calculation 100.4 mL/min (90-130) 02/16/25 17:46 Glucose 93 mg/dL (65-115) 02/16/25 17:46 Calculated Osmolality 291 mOsm/kg (285-295) 02/16/25 17:46 Calcium 9.4 mg/dL (8.5-10.5) 02/16/25 17:46 Total Bilirubin 0.2 mg/dL (0.15-1.2) 02/16/25 17:46 AST 22 U/L (0-40) 02/16/25 17:46 ALT 34 U/L (0-41) 02/16/25 17:46 Alkaline Phosphatase 61 U/L (40-130) 02/16/25 17:46 Total Protein 6.4 g/dL (6.6-8.7) L 02/16/25 17:46 Albumin 4.2 g/dL (3.5-5.2) 02/16/25 17:46 Globulin 2.2 g/dL (1.3-4.6) 02/16/25 17:46 Urine Color Yellow (Yellow) 02/16/25 18:00 Urine Appearance Clear (CLEAR) 02/16/25 18:00 Urine pH 5.5 (5-7) 02/16/25 18:00 Ur Specific [place] 1.027 (1.005-1.030) 02/16/25 18:00 Urine Protein Negative (Negative) 02/16/25 18:00 Urine Glucose (UA) Negative (Normal) 02/16/25 18:00 Urine Ketones Negative (Negative) 02/16/25 18:00 Urine Blood Negative (Negative) 02/16/25 18:00 Urine Nitrate Negative (Negative) 02/16/25 18:00 Urine Bilirubin Negative (Negative) 02/16/25 18:00 Urine Urobilinogen 1.0 mg/dL (Negative) 02/16/25 18:00 Ur Leukocyte Esterase Negative (Negative) 02/16/25 18:00 Urine RBC 0-2 /hpf (0-2) 02/16/25 18:00 Urine WBC 0-5 /hpf (0-5) 02/16/25 18:00 Ur Squamous Epith Cells 0-5 /hpf (0-5) 02/16/25 18:00 Amorphous Sediment Not Reportable 02/16/25 18:00 Urine Bacteria None seen /hpf (NONE) 02/16/25 18:00 Hyaline Casts 0-4 /lpf H 02/16/25 18:00 Salicylates < 0.3 mg/dL (3-10) L 02/16/25 17:46 Urine Opiates Screen Negative ng/mL (Negative) 02/16/25 18:00 Acetaminophen < 5.0 ug/mL (10-30) L 02/16/25 17:46 Ur Barbiturates Screen Negative ng/mL (Negative) 02/16/25 18:00 Valproic Acid 165.7 ug/mL (50-100) H 02/16/25 17:46 Ur Phencyclidine Scrn Negative ng/mL (Negative) 02/16/25 18:00 Ur Amphetamines Screen Negative ng/mL (Negative) 02/16/25 18:00 U Benzodiazepines Scrn Negative ng/mL (Negative) 02/16/25 18:00 Urine Cocaine Screen Negative ng/mL (Negative) 02/16/25 18:00 U Marijuana (THC) Screen Negative ng/mL (Negative) 02/16/25 18:00 Ethyl Alcohol < 10 mg/dL (0-10) 02/16/25 17:46 No radiology studies performed this visit Discharge Plan Discharge Patient Disposition: Xfer Psychiatric Hosp Clinical Impression: Hallucinations, visual, Acute psychosis, Auditory hallucinations Condition: Stable Discharge Diet: Usual diet Coding Level of Care Code ED [employer] for Cedric Benavidez
[2025-02-16 17:50] LABS: Hematocrit 38.8 % (37-53); Hemoglobin 13.30 g/dL (11.27-16.99); Mean Corpuscular HGB Conc 34.3 g/dL (30-55); Mean Corpuscular Hemoglobin 31.6 pg (27-33); Mean Corpuscular Volume 92.2 fl (82-101); Nucleated Red Blood Cells % 0 %; Platelet Count 170 10^3/cmm (157-399); Red Blood Count 4.21 10^6/uL (3.85-5.65); White Blood Count 7.90 10^3/uL (3.29-11.43)
[2025-02-16 18:11] LABS: Alanine Aminotransferase 34 U/L (0-41); Albumin Level 4.2 g/dL (3.5-5.2); Alkaline Phosphatase 61 U/L (40-130); Anion Gap 13.7 (5-19); Aspartate Amino Transferase 22 U/L (0-40); Blood Urea Nitrogen 21 mg/dL (6-20); Calcium 9.4 mg/dL (8.5-10.5); Carbon Dioxide 25 mmol/L (22-29); Chloride 105 mmol/L (98-107); Globulin 2.2 g/dL (1.3-4.6); Glucose 93 mg/dL (65-115); Osmolality Calculated 291 mOsm/kg (285-295); Potassium 4.7 mmol/L (3.5-5.1); Sodium 139 mmol/L (136-145); Total Protein 6.4 g/dL (6.6-8.7)
[2025-02-16 18:12] LABS: Acetaminophen < 5.0 ug/mL (10-30); Alcohol Level < 10 mg/dL (0-10); Salicylate < 0.3 mg/dL (3-10)
[2025-02-16 18:22] LABS: Glucose Urine UA Negative (Normal); Nitrate Urine Negative (Negative); Specific Gravity, Urine 1.027 (1.005-1.030)
[2025-02-16 18:27] LABS: Add Urine Microscopic? YES
[2025-02-16 18:29] LABS: PCP Screen Urine Negative (Negative)
[2025-02-16 20:25] VITALS: BP 148/98; PULSE 86; RESP 18; TEMP 36.8; O2SAT 94
[2025-02-16 21:10] VITALS: BP 148/98; PULSE 86; RESP 18; TEMP 36.8; O2SAT 94
[2025-02-17 05:36] VITALS: BMI 37.8
[2025-02-17 06:00] VITALS: BP 124/71; PULSE 78; RESP 17; TEMP 36.9; O2SAT 95
--- NOTE | 2025-02-17 07:38 | W.PM.NPUH&PS ---
Providers/Chief Complaint Admitting Physician: Steven Zayas MD Primary Care Provider: Wilman Britton Chief Complaint: mhe HPI NPU History of Present Illness Dameon Hernandez is a 54 year old male who presented to the emergency department with the following report: Chief Complaint: Psychiatric Symptoms Stated Complaint: mhe Time Seen by Provider: 02/16/25 17:29 History of Present Illness: Patient is a 54-year-old gentleman with known schizophrenia that presents to the ED with hallucinations. He states that he keeps seeing demons. He does have chronic memory loss. His last psychiatric admission was in September. Patient states he is not suicidal, no plan, no fleeting thoughts, not homicidal. He stated that he did lash out to someone at the retirement verbally, and has apologized multiple times because he feels bad for that. He wants to go to the psychiatric almeiad because he would like to fix this issue, and never wants to lash out at anyone. Associated symptoms: Reports auditory hallucinations and visual hallucinations; Deny homicidal ideation or suicidal ideation. He was admitted to the neuropsychiatric unit for definitive treatment of those issues. He is known to [facility] psychiatry only through his last hospitalization in September. An excerpt from that discharge summary is included below for context and the fact that he is a limited or poor historian and there have been no substantive changes. He presents from his facility as he had before this time reporting that he is having increase in hallucinations, irritability and low frustration tolerance. He identifies that his medication he has gotten adjusted to an in maybe it is not working as well. We agreed that this provider will get collateral information to understand what is going on at his facility but we also discussed the risks, benefits and alternatives of increasing his Invega to 9 mg p.o. daily and he understood and agreed to proceed as documented in this note. Per his 10/03/2024 [facility] inpatient psychiatric discharge summary: Diagnoses at Discharge Discharge Diagnosis 1. Antisocial personality disorder: 2. Intellectual disability: 3. Behavioral disorder: 4. Aggressive behavior: Reason for Visit Reason for Visit: SI Brief History: History of Present Illness Dameon Hernandez is a 54 year old male who presented to the emergency department with the following report: AcuteChief Complaint: Psychiatric Symptoms Stated Complaint: SI Time Seen by Provider: 09/24/24 19:22 History of Present Illness: 54-year-old man with a history of intellectual disability, antisocial personality, hypertension and bipolar disorder who presents emergency room by ambulance from a retirement. jail reports that he has been having behavioral outburst that have been worsening and severity. That is destroyed property and throwing things. They also say that he was trying to climb a fence. He tells me that all of this is false accusations. He also tells me that he had been accused of something and this was a false accusation as well. According the retirement he has been convicted as a pediatric sex offender. He denies everything at this time. He says he was sitting on the ground outside and he was dirty. And that he did not attack anyone or try to climb any fences. He was admitted to the neuropsychiatric unit for definitive treatment of those issues. He is unknown to [facility] psychiatry through inpatient or outpatient services. He presented today as a very poor historian as he was very lethargic and hard to arouse Fall asleep during interview. He spoke earlier briefly and he was alert but by the time I saw him he was unable to be awoken for regular conversation. Even so it appears that he is a limited historian due to past diagnosis of intellectual disability and there is significant discrepancy between his reports and those of his facility. 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 For reasons possibly of being an appropriate in front of his roommate he was removed from the ISL and now is in a retirement. I do not report those kinds of issues thus far but report him to be quite mercurial and having essentially intermittent explosions related to boundary setting. He had denied this concern or issue reporting that he is misunderstood. They report that in situations where they set limits he will immediately be explosive or agitated and not able to be redirected. Again he has denied these accusations. They even report that in this situation he had a very fast but aggressive response to the interaction with a staff member and was reportedly throwing things. There is even some report of him climbing on something but he denies that to be true either. They report however shortly after he had had his explosion, he ended up seeming to calm down but concerns about his behavior and that it was seeming to escalate were present and so he was brought to the hospital for evaluation of his medication. We discussed the risks, benefits and alternatives of considering changing out of the Seroquel and possibly giving him something like Invega or Abilify but we we will need to get some information on past medications and he understood and agreed to proceed as is documented in this note. He does have a guardian and so we will reach out to the guardian and figure out what that person knows if it is a longtime guardian or somebody from the facility. There are some concerns about his amount of medication and we discussed that we would evaluate his medication and make changes as indicated. Hospital Course During the hospitalization, the patient had routine laboratory studies which were within normal limits except for a few outliers. Additionally, there was a general medical evaluation which was also within normal limits and revealed no new acute processes. At the time of discharge, lethality was denied and psychosis was resolving. Mood and anxiety were well managed. The patient endorsed a plan to avoid all drugs of abuse and follow up with the aftercare recommendations of the treatment team. The patient was evaluated and deemed to be absent credible lethality and had achieved the maximum benefit from an inpatient hospitalization, and so was discharged. Depakote level on 10/03/24 was 96.1, Seroquel was discontinued during his hospital stay. Invega and depakote along with celexa was restarted with improved mood noted at the time of discharge. Meds NPU Home Medications ?Medication ?Instructions ?Recorded ?Confirmed ?Last Taken ?Type Lactobacillus acidophilus 1 tab PO DAILY 09/25/24 09/25/24 Unknown History (Acidophilus chewable tablet) acetaminophen 500 mg tablet 1,000 mg PO Q6H PRN Pain 09/25/24 09/25/24 09/08/24 History aluminum-mag hydroxide-simethicone 30 ml PO Q4H PRN Constipation 09/25/24 09/25/24 Unknown History 200 mg-200 mg-20 mg/5 mL oral susp (Xenia-Lanta) aspirin 81 mg tablet,delayed 81 mg PO DAILY 09/25/24 09/25/24 09/24/24 History release atorvastatin 20 mg tablet 20 mg PO DAILY 09/25/24 02/16/25 1 Day Ago History ~02/15/25 citalopram 40 mg tablet 40 mg PO DAILY 09/25/24 02/16/25 1 Day Ago History ~02/15/25 dicyclomine 10 mg capsule 10 mg PO TID 09/25/24 02/16/25 1 Day Ago History ~02/15/25 ergocalciferol (vitamin D2) 1,250 1,250 mcg PO DAILY 09/25/24 09/25/24 Unknown History mcg (50,000 unit) capsule hydroxyzine HCl 25 mg tablet 25 mg PO QPM 09/25/24 02/16/25 1 Day Ago History ~02/15/25 loperamide 2 mg tablet 2 mg PO Q6H PRN Constipation 09/25/24 09/25/24 Unknown History magnesium hydroxide 400 mg/5 mL 30 ml PO DAILY 09/25/24 09/25/24 Unknown History oral suspension (Milk of Magnesia) meloxicam 15 mg tablet 15 mg PO DAILY 09/25/24 02/16/25 1 Day Ago History ~02/15/25 metoprolol tartrate 25 mg tablet 25 mg PO BID 09/25/24 02/16/25 1 Day Ago History ~02/15/25 omeprazole 20 mg capsule,delayed 20 mg PO DAILY 09/25/24 02/16/25 1 Day Ago History release ~02/15/25 simethicone 80 mg chewable tablet 80 mg PO Q6H 09/25/24 09/25/24 Unknown History tamsulosin 0.4 mg capsule 0.4 mg PO DAILY 09/25/24 02/16/25 1 Day Ago History ~02/15/25 triamcinolone acetonide 0.1 % 1 applic topical BID 09/25/24 09/25/24 Unknown History topical cream divalproex 500 mg tablet,delayed 1,500 mg (3 x 500 mg) PO 0900,2100 10/03/24 02/16/25 1 Day Ago Rx release 30 days #180 tabs ~02/15/25 paliperidone 6 mg tablet,extended 6 mg PO DAILY 30 days #30 tabs 10/03/24 02/16/25 1 Day Ago Rx release 24 hr ~02/15/25 Allergies Allergy/AdvReac Type Severity Reaction Status Date / Time cucumber Allergy Unknown Verified 09/28/24 08:59 mushroom Allergy Unknown Verified 09/24/24 19:27 Mental Status Exam MSE Comments: This is an obese white male, with hospital scrubs on, disheveled with limited eye contact looking slightly older than his stated age. No abnormal movements except for mild psychomotor agitation. Cooperative with exam in no acute distress. Speech was decreased rate and volume and dysarthric. Mood described as okay but I need my medications increased; affect mostly euthymic. Thought process, mostly linear. Thought content: patient denied suicidal or homicidal ideation, there were no delusions reported or noted, patient denied any auditory or visual hallucinations. Attention and concentration appeared intact, and memory appears reliable but none were formally tested. He is arousable and oriented to person and place. Insight and judgment are impaired. Impulse control impaired, and intellectual ability appears limited versus impaired. Vitals/I&O/Wt Last Vital Signs Temp 98.5 F 02/17/25 06:00 Pulse 78 02/17/25 06:00 Resp 17 02/17/25 06:00 BP 124/71 02/17/25 06:00 Pulse Ox 95 02/17/25 06:00 O2 Del Method Room Air 02/17/25 06:00 Weight last 48 hrs Weight 106.141 kg Data NPU 02/16/25 17:46 02/16/25 17:46 A&P Assessment and plan 1. Bipolar disorder: 2. Antisocial personality disorder: 3. Intellectual disability: 4. Behavioral disorder: 5. Aggressive behavior: Plan: This is a 54 year old white male with a long history of mental health issues including intellectual disability among other impulse control issues who is in a retirement after previously being in the ISL history of some inappropriate or mxk-ox-mlolupk behaviors. He is known to us through a recent hospitalization a few months ago. He presents reporting that he has been doing okay but thinks he needs some of his medications adjusted or increase. 1. Continue current medication. Increase Invega to 9 mg p.o. daily and we will consider additional medication adjustments. As we explore whether this represents a true decompensation or a reflection of his underlying impulse control disorder/intellectual disability with inability to 2. Continue every 15 minute checks for safety. 3. Encourage individual, group and milieu therapies. 4. Get collateral information. 5. Evaluate against the backdrop of 96-hour hold. PDMP PDMP Reviewed: Not Reviewed Involuntary Hold Information Hold Status: Legal Status: Active Guardianship Attestations NPU Medical Necessity Statement*: Inpatient hospitalization is medically necessary and the clinically appropriate intervention at this time. We will monitor medications and make changes as indicated. His likely length of stay is 3-5 days. Coding Level of Care Code Acute Code for [facility] Fwd Diagnoses Bipolar disorder F31.9 Antisocial personality disorder F60.2 Intellectual disability F79 Behavioral disorder Aggressive behavior R46.89
[2025-02-17] MEDS: paliperidone ER 6 mg Tablet PO (09:51)
[2025-02-17] MEDS: ATORVASTATIN 10 MG TABLET 20 MG PO (09:52)
[2025-02-17 11:34] VITALS: BP 137/84
--- NOTE | 2025-02-17 13:14 | PC.NURSE ---
Updated Marilia from [facility] on patient. Patient currently denies SI/HI/AVH. He has been pleasant and cooperative with care.
[2025-02-17 13:27] VITALS: BP 145/95; PULSE 84; RESP 18; TEMP 36.8; O2SAT 95
--- NOTE | 2025-02-17 14:28 | PC.NURSE ---
Patient denies AVH or delusions at this facility. He states that he was seeing demons in his room at the other facility. He is requesting that the room be blessed. Patient is expressing remorse over talking badly to the staff and residents.
--- NOTE | 2025-02-17 19:40 | PC.NURSE ---
PT asked to speak with the Director Of Digital Marketing tomorrow 02/18/25
[2025-02-17 19:54] VITALS: BP 145/91; PULSE 89; RESP 19; TEMP 36.5; O2SAT 95
[2025-02-18 06:00] VITALS: BP 134/87; PULSE 91; RESP 16; TEMP 37.2; O2SAT 97
[2025-02-18] MEDS: ATORVASTATIN 10 MG TABLET 20 MG PO (08:16)
[2025-02-18] MEDS: paliperidone ER 6 mg Tablet PO (08:16)
[2025-02-18] MEDS: divalproex DR 500 mg Tablet 1500 MG PO ×2 (08:16→20:37)
[2025-02-18 13:48] VITALS: BP 146/78; PULSE 98; RESP 16; TEMP 37; O2SAT 98
--- NOTE | 2025-02-18 16:10 | W.PM.NPUPNS ---
Subjective NPU Subjective: 54-year-old male with a history of intellectual disability along with for impulse control admitted with history of auditory hallucinations on admission. The patient had appeared somewhat isolative on the milieu. He had appeared redirectable but. He had reported feeling better with the medication adjustment by Dr. Zayas. He had reported no side effects from his medication regimen. He had stated that he would like to return to his snf when stabilized here. Mental Status Exam MSE Comments: This is an obese white male, with hospital scrubs on, disheveled with limited eye contact looking slightly older than his stated age. No abnormal involuntary motor movements except for mild psychomotor agitation. He was cooperative with exam in no acute distress. His speech was decreased in rate and volume and dysarthric. Mood described as better. His affect was restricted in range. Thought process was linear and logical. Thought content: patient denied suicidal or homicidal ideation, there were no delusions reported or noted, patient endorsed hearing demons. Attention and concentration appeared intact, and memory appears reliable but none were formally tested. He is arousable and oriented to person and place. Insight and judgment are impaired. Impulse control impaired, and intellectual ability appears limited versus impaired. Vitals/I&O/Wt Last Vital Signs Temp 98.6 F 02/18/25 13:48 Pulse 98 02/18/25 13:48 Resp 16 02/18/25 13:48 BP 146/78 02/18/25 13:48 Pulse Ox 98 02/18/25 13:48 O2 Del Method Room Air 02/18/25 13:48 Weight last 48 hrs Weight 106.141 kg Data NPU 02/16/25 17:46 02/16/25 17:46 A&P Assessment and plan 1. Bipolar disorder: 2. Antisocial personality disorder: 3. Intellectual disability: 4. Behavioral disorder: 5. Aggressive behavior: Plan: This is a 54 year old white male with a long history of mental health issues including intellectual disability among other impulse control issues who is in a intermediate after previously being in the ISL history of some inappropriate or ipt-eg-nmgdfai behaviors. He is known to us through a recent hospitalization a few months ago. He presents reporting that he has been doing okay but thinks he needs some of his medications adjusted or increase. 1. Continue current medication. Continue Invega at 9 mg p.o. daily and we will consider additional medication adjustments. As we explore whether this represents a true decompensation or a reflection of his underlying impulse control disorder/intellectual disability with inability to manage impulse control and stress. 2. Continue every 15 minute checks for safety. 3. Encourage individual, group and milieu therapies. 4. Get collateral information. 5. Evaluate against the backdrop of 96-hour hold. PDMP PDMP Reviewed: Not Reviewed Involuntary Hold Information Hold Status: Legal Status: Active Guardianship Date/Time Hold Expires: Abhijeet Riojas Attestations NPU Medical Necessity Statement*: Inpatient hospitalization is medically necessary and the clinically appropriate intervention at this time. We will monitor medications and make changes as indicated. His likely length of stay is 2-4 days. Coding Level of Care Code Acute Code for [facility] Fw Diagnoses Bipolar disorder F31.9 Antisocial personality disorder F60.2 Intellectual disability F79 Behavioral disorder Aggressive behavior R46.89
[2025-02-18 19:52] VITALS: BP 135/86; PULSE 94; RESP 18; TEMP 36.8; O2SAT 95
[2025-02-19 06:00] VITALS: BP 128/74; PULSE 88; RESP 18; O2SAT 95
[2025-02-19] MEDS: divalproex DR 500 mg Tablet 1500 MG PO ×2 (08:58→18:53)
[2025-02-19] MEDS: paliperidone ER 6 mg Tablet 9 MG PO (08:58)
[2025-02-19] MEDS: ATORVASTATIN 10 MG TABLET 20 MG PO (08:58)
[2025-02-19 13:56] VITALS: BP 131/83; PULSE 93; RESP 18; TEMP 36.4; O2SAT 97
--- NOTE | 2025-02-19 16:23 | W.PM.NPUPNS ---
Subjective NPU Subjective: 54-year-old male with a history of intellectual disability along with for impulse control admitted with history of auditory hallucinations on admission. The patient had continued to report that he had felt that his home was recently blast and therefore he would be not so influenced by the demons that he had been seeing. He had reported that he was not currently seeing demons here and reported that the sounds of demons in his head had diminished substantially. He had been isolating himself on the milieu. He had reported that he had excessive daytime sleepiness and reported that he had been treated for sleep apnea previously. The patient had appeared somewhat isolative on the milieu. Mental Status Exam MSE Comments: This is an obese white male, with hospital scrubs on, disheveled with limited eye contact looking slightly older than his stated age. No abnormal involuntary motor movements except for mild psychomotor agitation. He was cooperative with exam in no acute distress. His speech was decreased in rate and volume and dysarthri and spontaneous. Mood described as better. His affect was restricted in range. Thought process was linear and logical. Thought content: patient denied suicidal or homicidal ideation, There were no delusions reported or noted, Patient endorsed hearing demons. but reported they were quieter. Attention and concentration appeared intact, and memory appears reliable but none were formally tested. He is arousable and oriented to person and place. Insight and judgment are impaired. Impulse control appeared better and intellectual ability appears limited versus impaired. Vitals/I&O/Wt Last Vital Signs Temp 97.5 F L 02/19/25 13:56 Pulse 93 02/19/25 13:56 Resp 18 02/19/25 13:56 BP 131/83 02/19/25 13:56 Pulse Ox 97 02/19/25 13:56 O2 Del Method Room Air 02/19/25 13:56 Data NPU 02/16/25 17:46 02/16/25 17:46 A&P Assessment and plan 1. Bipolar disorder: 2. Antisocial personality disorder: 3. Intellectual disability: 4. Behavioral disorder: 5. Aggressive behavior: Plan: This is a 54 year old white male with a long history of mental health issues including intellectual disability among other impulse control issues who is in a snf after previously being in the ISL history of some inappropriate or tgd-co-anydcke behaviors. He is known to us through a recent hospitalization a few months ago. He presents reporting that he has been doing okay but thinks he needs some of his medications adjusted or increase. 1. Continue current medication. Continue Invega at 9 mg p.o. daily and we will consider additional medication adjustments. As we explore whether this represents a true decompensation or a reflection of his underlying impulse control disorder/intellectual disability with inability to manage impulse control and stress. 2. Continue every 15 minute checks for safety. 3. Encourage individual, group and milieu therapies. 4. Get collateral information. 5. Evaluate against the backdrop of 96-hour hold. PDMP PDMP Reviewed: Not Reviewed Involuntary Hold Information Hold Status: Legal Status: Active Guardianship Date/Time Hold Expires: Ahbijeet Riojas Attestations NPU Medical Necessity Statement*: Inpatient hospitalization is medically necessary and the clinically appropriate intervention at this time. We will monitor medications and make changes as indicated. His likely length of stay is 1-2 days. Coding Level of Care Code Acute Code for [facility] Fwd Diagnoses Bipolar disorder F31.9 Antisocial personality disorder F60.2 Intellectual disability F79 Behavioral disorder Aggressive behavior R46.89
[2025-02-19] MEDS: blistex lip oint 7 gm Tube 1 APPLIC TOPICAL (18:53)
[2025-02-19 19:34] VITALS: BP 136/84; PULSE 107; RESP 18; TEMP 36.5; O2SAT 94
[2025-02-20 06:00] VITALS: BP 141/84; PULSE 86; RESP 18; O2SAT 95
[2025-02-20] MEDS: paliperidone ER 6 mg Tablet 9 MG PO (08:24)
[2025-02-20] MEDS: ATORVASTATIN 10 MG TABLET 20 MG PO (08:24)
[2025-02-20] MEDS: divalproex DR 500 mg Tablet 1500 MG PO (08:28)
--- NOTE | 2025-02-20 10:16 | NUR.SHIFT ---
Pt states that he slept so, so States that his anxiety is pretty good When asked about depression he states that he is fine until he has diarrhea and then that makes him kind of sad. Denies reports of SI/HI or hallucinations. Rates his Rt shoulder/arm pain a 9/10 and low back pain he states is from the hard beds. He is calm and cooperative on assessment. States that he is excited to d/c today.
--- NOTE | 2025-02-20 12:12 | DCPLANNER ---
IMM completed with pt on 02/20/2025 @ 12pm and pt was given a copy of his rights.
--- NOTE | 2025-02-20 13:29 | W.PM.NPUDCS ---
Diagnoses at Discharge Discharge Diagnosis 1. Antisocial personality disorder: 2. Intellectual disability: 3. Behavioral disorder: 4. Aggressive behavior: Reason for Visit Reason for Visit: mhe Brief History: History of Present Illness Dameon Hernandez is a 54 year old male who presented to the emergency department with the following report: Chief Complaint: Psychiatric Symptoms Stated Complaint: mhe Time Seen by Provider: 02/16/25 17:29 History of Present Illness: Patient is a 54-year-old gentleman with known schizophrenia that presents to the ED with hallucinations. He states that he keeps seeing demons. He does have chronic memory loss. His last psychiatric admission was in September. Patient states he is not suicidal, no plan, no fleeting thoughts, not homicidal. He stated that he did lash out to someone at the assisted verbally, and has apologized multiple times because he feels bad for that. He wants to go to the psychiatric [facility] because he would like to fix this issue, and never wants to lash out at anyone. Associated symptoms: Reports auditory hallucinations and visual hallucinations; Deny homicidal ideation or suicidal ideation. He was admitted to the neuropsychiatric unit for definitive treatment of those issues. He is known to [facility] psychiatry only through his last hospitalization in September. An excerpt from that discharge summary is included below for context and the fact that he is a limited or poor historian and there have been no substantive changes. He presents from his facility as he had before this time reporting that he is having increase in hallucinations, irritability and low frustration tolerance. He identifies that his medication he has gotten adjusted to an in maybe it is not working as well. We agreed that this provider will get collateral information to understand what is going on at his facility but we also discussed the risks, benefits and alternatives of increasing his Invega to 9 mg p.o. daily and he understood and agreed to proceed as documented in this note. Per his 10/03/2024 [facility] inpatient psychiatric discharge summary: Diagnoses at Discharge Discharge Diagnosis 1. Antisocial personality disorder: 2. Intellectual disability: 3. Behavioral disorder: 4. Aggressive behavior: Reason for Visit Reason for Visit: SI Brief History: History of Present Illness Dameon Hernandez is a 54 year old male who presented to the emergency department with the following report: AcuteChief Complaint: Psychiatric Symptoms Stated Complaint: SI Time Seen by Provider: 09/24/24 19:22 History of Present Illness: 54-year-old man with a history of intellectual disability, antisocial personality, hypertension and bipolar disorder who presents emergency room by ambulance from a assisted. group home reports that he has been having behavioral outburst that have been worsening and severity. That is destroyed property and throwing things. They also say that he was trying to climb a fence. He tells me that all of this is false accusations. He also tells me that he had been accused of something and this was a false accusation as well. According the assisted he has been convicted as a pediatric sex offender. He denies everything at this time. He says he was sitting on the ground outside and he was dirty. And that he did not attack anyone or try to climb any fences. He was admitted to the neuropsychiatric unit for definitive treatment of those issues. He is unknown to [facility] psychiatry through inpatient or outpatient services. He presented today as a very poor historian as he was very lethargic and hard to arouse Fall asleep during interview. He spoke earlier briefly and he was alert but by the time I saw him he was unable to be awoken for regular conversation. Even so it appears that he is a limited historian due to past diagnosis of intellectual disability and there is significant discrepancy between his reports and those of his facility. 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 For reasons possibly of being an appropriate in front of his roommate he was removed from the ISL and now is in a assisted. I do not report those kinds of issues thus far but report him to be quite mercurial and having essentially intermittent explosions related to boundary setting. He had denied this concern or issue reporting that he is misunderstood. They report that in situations where they set limits he will immediately be explosive or agitated and not able to be redirected. Again he has denied these accusations. They even report that in this situation he had a very fast but aggressive response to the interaction with a staff member and was reportedly throwing things. There is even some report of him climbing on something but he denies that to be true either. They report however shortly after he had had his explosion, he ended up seeming to calm down but concerns about his behavior and that it was seeming to escalate were present and so he was brought to the hospital for evaluation of his medication. We discussed the risks, benefits and alternatives of considering changing out of the Seroquel and possibly giving him something like Invega or Abilify but we we will need to get some information on past medications and he understood and agreed to proceed as is documented in this note. He does have a guardian and so we will reach out to the guardian and figure out what that person knows if it is a longtime guardian or somebody from the facility. There are some concerns about his amount of medication and we discussed that we would evaluate his medication and make changes as indicated. Hospital Course During the hospitalization, the patient had routine laboratory studies which were within normal limits except for a few outliers. Additionally, there was a general medical evaluation which was also within normal limits and revealed no new acute processes. At the time of discharge, lethality was denied and psychosis was resolving. Mood and anxiety were well managed. The patient endorsed a plan to avoid all drugs of abuse and follow up with the aftercare recommendations of the treatment team. The patient was evaluated and deemed to be absent credible lethality and had achieved the maximum benefit from an inpatient hospitalization, and so was discharged. Depakote level on 10/03/24 was 96.1, Seroquel was discontinued during his hospital stay. Invega and depakote along with celexa was restarted with improved mood noted at the time of discharge. Hospital Course Hospital Course The patient was restarted on his outpatient medications and Invega was increased from 6 mg to 9 mg daily. He had complained of auditory hallucinations and visions of seeing demons that appeared to resolve with the change in his medications. During the hospitalization, the patient had routine laboratory studies which were within normal limits except for a few outliers.? Additionally, there was a general medical evaluation which was also within normal limits and revealed no new acute processes.? At the time of discharge, lethality was denied and psychosis was resolving.? Mood and anxiety were well managed.? The patient endorsed a plan to avoid all drugs of abuse and follow up with the aftercare recommendations of the treatment team.? The patient was evaluated and deemed to be absent credible lethality and had achieved the maximum benefit from an inpatient hospitalization, and so was discharged. ? Involuntary Hold Information Hold Status: Legal Status: Active Guardianship Date/Time Hold Expires: Abhijeet Riojas Mental Status Exam MSE Comments: This is an obese white male, with hospital scrubs on, disheveled with limited eye contact looking slightly older than his stated age. No abnormal involuntary motor movements except for mild psychomotor agitation. He was cooperative with exam in no acute distress. His speech was decreased in rate and volume and dysarthric and spontaneous. Mood described as good. His affect was euthymic on discharge. Thought process was linear and logical. Thought content: patient denied suicidal or homicidal ideation, There were no delusions reported or noted, Patient denied auditory or visual hallucinations. Attention and concentration appeared intact, and memory appears reliable but none were formally tested. He is alert and oriented to person, place and time. Insight and judgment are impaired. Impulse control appeared better and intellectual ability appears limited versus impaired. Discharge Data Studies Completed and Pending: Laboratory Results WBC 7.90 10^3/uL (3.2 9-11.43) 02/16/25 17:46 RBC 4.21 10^6/uL (3.8 5-5.65) 02/16/25 17:46 Hgb 13.30 g/dL (11.27 -16.99) 02/16/25 17:46 Hct 38.8 % (37-53) 02/16/25 17:46 MCV 92.2 fl (82-101) 02/16/25 17:46 MCH 31.6 pg (27-33) 02/16/25 17:46 MCHC 34.3 g/dL (30-55) 02/16/25 17:46 RDW 12.4 % (12.1-15.1 ) 02/16/25 17:46 Plt Count 170 10^3/cmm (157 -399) 02/16/25 17:46 MPV 9.3 fL (7.4-10.4) 02/16/25 17:46 Neut % (Auto) 55.5 % 02/16/25 17:46 Lymph % (Auto) 26.6 % 02/16/25 17:46 Mesa % (Auto) 14.2 % 02/16/25 17:46 Eos % (Auto) 2.0 % 02/16/25 17:46 Baso % (Auto) 0.3 % 02/16/25 17:46 Neut # (Auto) 4.39 10^3/uL (1.8 -7.7) 02/16/25 17:46 Lymph # (Auto) 2.1 10^3/uL (0.8- 4.8) 02/16/25 17:46 Mesa # (Auto) 1.1 10^3/uL (0.2- 0.9) H 02/16/25 17:46 Eos # (Auto) 0.2 10^3/uL (0.0- 0.8) 02/16/25 17:46 Baso # (Auto) 0.0 10^3/uL (0.0- 0.1) 02/16/25 17:46 Nucleated RBC % (a uto) 0 % 02/16/25 17:46 Nucleated RBCs # 0.0 /100WBC 02/16/25 17:46 Sodium 139 mmol/L (136-1 45) 02/16/25 17:46 Potassium 4.7 mmol/L (3.5-5 .1) 02/16/25 17:46 Chloride 105 mmol/L (98-10 7) 02/16/25 17:46 Carbon Dioxide 25 mmol/L (22-29) 02/16/25 17:46 Anion Gap 13.7 (5-19) 02/16/25 17:46 BUN 21 mg/dL (6-20) H 02/16/25 17:46 Creatinine 0.8 mg/dL (0.7-1. 2) 02/16/25 17:46 GFR Calculation 100.4 mL/min (90- 130) 02/16/25 17:46 Glucose 93 mg/dL (65-115) 02/16/25 17:46 Calculated Osmolal ity 291 mOsm/kg (285- 295) 02/16/25 17:46 Calcium 9.4 mg/dL (8.5-10 .5) 02/16/25 17:46 Total Bilirubin 0.2 mg/dL (0.15-1 .2) 02/16/25 17:46 AST 22 U/L (0-40) 02/16/25 17:46 ALT 34 U/L (0-41) 02/16/25 17:46 Alkaline Phosphata se 61 U/L (40-130) 02/16/25 17:46 Total Protein 6.4 g/dL (6.6-8.7 ) L 02/16/25 17:46 Albumin 4.2 g/dL (3.5-5.2 ) 02/16/25 17:46 Globulin 2.2 g/dL (1.3-4.6 ) 02/16/25 17:46 Urine Color Yellow (Yellow) 02/16/25 18:00 Urine Appearance Clear (CLEAR) 02/16/25 18:00 Urine pH 5.5 (5-7) 02/16/25 18:00 Ur Specific Gravit y 1.027 (1.005-1.0 30) 02/16/25 18:00 Urine Protein Negative (Negati ve) 02/16/25 18:00 Urine Glucose (UA) Negative (Normal ) 02/16/25 18:00 Urine Ketones Negative (Negati ve) 02/16/25 18:00 Urine Blood Negative (Negati ve) 02/16/25 18:00 Urine Nitrate Negative (Negati ve) 02/16/25 18:00 Urine Bilirubin Negative (Negati ve) 02/16/25 18:00 Urine Urobilinogen 1.0 mg/dL (Negati ve) 02/16/25 18:00 Ur Leukocyte Renetta ase Negative (Negati ve) 02/16/25 18:00 Urine RBC 0-2 /hpf (0-2) 02/16/25 18:00 Urine WBC 0-5 /hpf (0-5) 02/16/25 18:00 Ur Squamous Epith Cells 0-5 /hpf (0-5) 02/16/25 18:00 Amorphous Sediment Not Reportable 02/16/25 18:00 Urine Bacteria None seen /hpf (N ONE) 02/16/25 18:00 Hyaline Casts 0-4 /lpf H 02/16/25 18:00 Salicylates < 0.3 mg/dL (3-10 ) L 02/16/25 17:46 Urine Opiates Scre en Negative ng/mL (N egative) 02/16/25 18:00 Acetaminophen < 5.0 ug/mL (10-3 0) L 02/16/25 17:46 Ur Barbiturates Sc reen Negative ng/mL (N egative) 02/16/25 18:00 Valproic Acid 165.7 ug/mL (50-1 00) H 02/16/25 17:46 Ur Phencyclidine S crn Negative ng/mL (N egative) 02/16/25 18:00 Ur Amphetamines Sc reen Negative ng/mL (N egative) 02/16/25 18:00 U Benzodiazepines Scrn Negative ng/mL (N egative) 02/16/25 18:00 Urine Cocaine Scre en Negative ng/mL (N egative) 02/16/25 18:00 U Marijuana (THC) Screen Negative ng/mL (N egative) 02/16/25 18:00 Ethyl Alcohol < 10 mg/dL (0-10) 02/16/25 17:46 Vitals: Last Vital Signs Temp 97.7 F 02/19/25 19:34 Pulse 86 02/20/25 06:00 Resp 18 02/20/25 06:00 BP 141/84 02/20/25 06:00 Pulse Ox 95 02/20/25 06:00 O2 Del Method Room Air 02/20/25 06:00 Discharge Plan Discharge Patient Disposition: Home Condition: Stable Prescriptions: New paliperidone [Invega] 9 mg tablet extended release 24hr 9 mg PO DAILY Qty: 30 1RF paliperidone [Invega] 9 mg tablet extended release 24hr 9 mg PO DAILY Qty: 7 0RF Continued atorvastatin 20 mg tablet 20 mg PO DAILY citalopram 40 mg tablet 40 mg PO DAILY meloxicam 15 mg tablet 15 mg PO DAILY loperamide 2 mg Tablet 2 mg PO Q6H PRN (Reason: Constipation) aspirin 81 mg Tablet,Delayed Release (Dr/Ec) 81 mg PO DAILY acetaminophen 500 mg Tablet 1,000 mg PO Q6H PRN (Reason: Pain) triamcinolone acetonide 0.1 % Cream 1 applic TOPICAL BID magnesium hydroxide [Milk of Magnesia] 400 mg/5 mL Suspension 30 ml PO DAILY tamsulosin 0.4 mg capsule 0.4 mg PO DAILY omeprazole 20 mg capsule,delayed release(DR/EC) 20 mg PO DAILY hydroxyzine HCl 25 mg tablet 25 mg PO QPM ergocalciferol (vitamin D2) 1,250 mcg (50,000 unit) Capsule 1,250 mcg PO DAILY alum-mag hydroxide-simeth [Xenia-Lanta] 200-200-20 mg/5 mL Suspension 30 ml PO Q4H PRN (Reason: Constipation) Rx Instructions: administer between meals and at bedtime dicyclomine 10 mg capsule 10 mg PO TID simethicone 80 mg Tablet,Chewable 80 mg PO Q6H Acidophilus Tablet,Chewable 1 tab PO DAILY metoprolol tartrate 25 mg tablet 25 mg PO BID divalproex 500 mg Tablet,Delayed Release (Dr/Ec) 1,500 mg PO 0900,2100 30 Days Qty: 180 1RF Discontinued paliperidone 6 mg Tablet Extended Release 24hr 6 mg PO DAILY 30 Days Qty: 30 1RF Discharge Order = DC NOW: Discharge Order (Routine); Ordered 02/20/25 Ordered By: Abelardo Connelly Referrals: Wilman Britton [Primary Care Provider, Internal Medicine] Discharge Diet: Usual diet Patient Instructions: Opioid Safety, Patient Portal & Michael Instructions Discharge Attestations NPU Time Spent in Discharge Care*: less than 30 min Specific Discharge Activities: Specific discharge activities: educating patient, discussing with shelter case manager/social workers/dc planners and documenting/other paperwork Coding Level of Care Code Acute Code for [facility] Fwd Diagnoses Bipolar disorder F31.9 Antisocial personality disorder F60.2 Intellectual disability F79 Behavioral disorder Aggressive behavior R46.89
[2025-02-20 14:00] VITALS: BP 124/79; PULSE 94; RESP 17; TEMP 36.9; O2SAT 96
[2025-02-20 14:52] VITALS: BP 124/79; PULSE 94; RESP 16; TEMP 36.9; O2SAT 99
== END 2025-02-20 15:05 | disposition intermediate care facility (04) | DRG 885 ==
LOC: ER 17:53 → NP 20:12
PROVIDERS: Admitting Provider Psychiatry & Neurology Psychiatry; Emergency Provider Physician Assistant; PCP Student in an Organized Health Care Education/Training Program; Visit Provider Psychiatry & Neurology Psychiatry
DX: F20.9 Schizophrenia, unspecified (principal); R41.3 Other amnesia; F31.9 Bipolar disorder, unspecified; I10 Essential (primary) hypertension; F60.2 Antisocial personality disorder; F79 Unspecified intellectual disabilities; E66.9 Obesity, unspecified; Z68.37 Body mass index [BMI] 37.0-37.9, adult; F63.9 Impulse disorder, unspecified
CPT/HCPCS: 36415; 80053; 80164; 80306; 80307; 81001; 85025; 94660; 97150; 97165; 99285; J9999

== ENCOUNTER 2025-04-22 15:54 | Inpatient (IN) | payer MEDICARE, MEDICAID, SELFPAY ==
[2025-04-22 15:56] VITALS: BP 134/89; PULSE 85; RESP 16; TEMP 36.9; O2SAT 95; BMI 41.9
--- NOTE | 2025-04-22 16:11 | W.ED.PSYCHS ---
Documented by User: ZEN Wilson 04/22/25 17:36 HPI - Psych General: Chief Complaint: Psychiatric Symptoms Stated Complaint: behavioral Source: patient and EMS Mode of arrival: EMS Limitations: no limitations History of Present Illness: Patient is a 54-year-old male with history of schizophrenia and aggressive behavior who presents to the emergency department by ambulance from [facility] for reports of aggressive behavior today. Reported that he was supposed to have privileges that he was able to attend today due to there being no one-to-one sitter, and this made him very angry to the point where he was threatening other staff, other residents, and had threatened to kill himself by suffocating himself. He has a history of similar in the past, he takes medications and he tells me that he has been taking these as normal. The patient tells me that he was looking forward to doing crafts, and that sometimes he gets angry if he is unable to do these as they help him cope. He states that currently he does not feel homicidal or suicidal, but does agree to seeing psychiatry as there are affidavits on his chart from staff. He is calm and cooperative at this time with no complaints. He is not endorsing any hallucinations. MD complaint: other (Aggressive behavior, SI/HI) Duration: resolved prior to arrival History of same: Yes Associated symptoms: Reports homicidal ideation and suicidal ideation; Deny auditory hallucinations, visual hallucinations or depression Related Data Home Medications ?Medication ?Instructions ?Recorded ?Confirmed Lactobacillus acidophilus 1 tab PO DAILY 09/25/24 04/22/25 (Acidophilus chewable tablet) aluminum-mag hydroxide-simethicone 30 ml PO Q4H PRN Constipation 09/25/24 04/22/25 200 mg-200 mg-20 mg/5 mL oral susp (Xenia-Lanta) aspirin 81 mg tablet,delayed 81 mg PO DAILY 09/25/24 04/22/25 release atorvastatin 20 mg tablet 20 mg PO QPM 09/25/24 04/22/25 citalopram 40 mg tablet 40 mg PO DAILY 09/25/24 04/22/25 dicyclomine 10 mg capsule 10 mg PO TID 09/25/24 04/22/25 ergocalciferol (vitamin D2) 1,250 1,250 mcg PO Q7D 09/25/24 04/22/25 mcg (50,000 unit) capsule hydroxyzine HCl 25 mg tablet 25 mg PO QPM 09/25/24 04/22/25 loperamide 2 mg tablet 2 mg PO Q6H PRN Constipation 09/25/24 04/22/25 magnesium hydroxide 400 mg/5 mL 30 ml PO DAILY PRN Constipation 09/25/24 04/22/25 oral suspension (Milk of Magnesia) meloxicam 15 mg tablet 15 mg PO DAILY 09/25/24 04/22/25 metoprolol tartrate 25 mg tablet 25 mg PO BID 09/25/24 04/22/25 omeprazole 20 mg capsule,delayed 20 mg PO DAILY 09/25/24 04/22/25 release simethicone 80 mg chewable tablet 80 mg PO Q6H PRN indigestion/gas 09/25/24 04/22/25 tamsulosin 0.4 mg capsule 0.4 mg PO QPM 09/25/24 04/22/25 acetaminophen 325 mg tablet 650 mg PO Q6H PRN general 04/22/25 04/22/25 discomfort bisacodyl 10 mg rectal suppository 10 mg FL DAILY PRN Constipation 04/22/25 04/22/25 miconazole nitrate 2 % topical See Rx Instructions .Route .COMPLEX 04/22/25 04/22/25 cream Previous Rx's ?Medication ?Instructions ?Recorded divalproex 500 mg tablet,delayed 1,500 mg (3 x 500 mg) PO 0900,2100 10/03/24 release 30 days #180 tabs paliperidone 9 mg tablet,extended 9 mg PO DAILY #7 tabs 02/20/25 release 24 hr (Invega) Allergies Allergy/AdvReac Type Severity Reaction Status Date / Time cucumber Allergy Unknown Verified 09/28/24 08:59 mushroom Allergy Unknown Verified 09/24/24 19:27 Review of Systems General: Reports: 10 or more systems reviewed and unremarkable except in HPI and below Const: Denies: fever(s), chills or fatigue Eyes: Denies: change in vision ENMT: Denies: throat pain, ear or mastoid pain or nasal discharge Card: Denies: chest pain, palpitations, swelling of feet/ankles or lightheadedness Resp: Denies: dyspnea, productive cough or wheezing GI: Denies: abdominal pain, nausea, vomiting, diarrhea or constipation : Denies: flank pain, difficulty urinating, dysuria or urinary frequency Musc: Denies: neck pain, back pain or joint pain Skin/Breast: Denies: rash Neuro: Reports: behavioral changes; Denies: headache(s), numbness in extremities or weakness in extremities Psych: Reports: suicidal ideation and homicidal ideation; Denies: anxiety, depression, difficulty concentrating, visual hallucinations or auditory hallucinations Physical Exam Const: COMMON NORMALS: no acute distress, patient oriented x3 and no limitations GENERAL APPEARANCE: cooperative, comfortable and well developed ORIENTATION/CONSCIOUSNESS: Yes awake, Yes oriented to person, Yes oriented to place and Yes oriented to time HENMT: COMMON NORMALS: normocephalic, atraumatic and hearing grossly normal bilaterally HEAD & SCALP: normocephalic and atraumatic Eye: COMMON NORMALS: Equal, round and reactive pupils present, EOMs intact bilaterally and conjunctivae normal CONJUNCTIVA: Yes conjunctivae normal PUPIL: Yes Equal, round and reactive pupils present Neck/C-Spine: COMMON NORMALS: full ROM, supple and no JVD Resp: COMMON NORMALS: normal respiratory effort, No retractions, No use of accessory muscles and clear to auscultation bilaterally AUSCULTATION: clear to auscultation bilaterally Cardio: COMMON NORMALS: no JVD, regular rate, regular rhythm, No clicks present (Cardio), No murmurs present (Cardio) and No rub (Cardio) RATE: regular rate RHYTHM: regular rhythm Extremity: COMMON NORMALS: normal to inspection, full ROM and capillary refill normal Neuro: COMMON NORMALS: patient oriented x3, moves all extremities, no focal motor deficits and no sensory deficits noted SENSORIUM/ORIENTATION: Yes oriented to person, Yes oriented to place and Yes oriented to time Psych: COMMON NORMALS: mental status grossly normal and Normal thought process present THOUGHT PROCESS: Normal thought process present THOUGHT CONTENT: No Suicidality present, No Homicidality present and No Hallucination(s) present Skin: COMMON NORMALS: no rashes or lesions noted GENERAL SKIN EXAM: no rashes or lesions noted Course Vital Signs: Vital signs: Vital Signs Temperature 98.4 F 04/22/25 15:56 Pulse Rate 86 04/22/25 16:25 Respiratory Rate 16 04/22/25 15:56 Blood Pressure 134/89 04/22/25 15:56 Pulse Oximetry 96 04/22/25 16:25 Oxygen Delivery Me thod Room Air 04/22/25 16:25 MDM - Psych Medical Decision Making Patient had presented by ambulance from retirement/assisted living due to an outburst he had with staff, where he was hitting them following being denied privileges to craft. Please refer to the HPI for the full story, patient, cooperative. Denying SI HI but there are affidavits indicating that he was very violent with staff and had attempted to suffocate himself. He has history of similar in the past, seen here prior in January of this year for similar and was discharged back. Patient states he does okay until he has these outbursts, he is cleared medically and I spoke to Dr. Connelly, psychiatrist, who is except patient to the neuropsychiatric unit. Dr. Crandall briefed on this patient and will place admit orders. There are affidavits on patient's chart. Lab Data 04/22/25 16:04 04/22/25 16:04 Laboratory Results WBC 11.52 10^3/uL (3.29-11.43) H 04/22/25 16:04 RBC 4.28 10^6/uL (3.85-5.65) 04/22/25 16:04 Hgb 13.60 g/dL (11.27-16.99) 04/22/25 16:04 Hct 40.1 % (37-53) 04/22/25 16:04 MCV 93.7 fl (82-101) 04/22/25 16:04 MCH 31.8 pg (27-33) 04/22/25 16:04 MCHC 33.9 g/dL (30-55) 04/22/25 16:04 RDW 12.6 % (12.1-15.1) 04/22/25 16:04 Plt Count 162 10^3/cmm (157-399) 04/22/25 16:04 MPV 9.1 fL (7.4-10.4) 04/22/25 16:04 Neut % (Auto) 66.5 % 04/22/25 16:04 Lymph % (Auto) 15.1 % 04/22/25 16:04 [place] % (Auto) 16.3 % 04/22/25 16:04 Eos % (Auto) 0.4 % 04/22/25 16:04 Baso % (Auto) 0.4 % 04/22/25 16:04 Neut # (Auto) 7.65 10^3/uL (1.8-7.7) 04/22/25 16:04 Lymph # (Auto) 1.7 10^3/uL (0.8-4.8) 04/22/25 16:04 [place] # (Auto) 1.9 10^3/uL (0.2-0.9) H 04/22/25 16:04 Eos # (Auto) 0.1 10^3/uL (0.0-0.8) 04/22/25 16:04 Baso # (Auto) 0.1 10^3/uL (0.0-0.1) 04/22/25 16:04 Nucleated RBC % (auto) 0 % 04/22/25 16:04 Nucleated RBCs # 0.0 /100WBC 04/22/25 16:04 Sodium 137 mmol/L (136-145) 04/22/25 16:04 Potassium 5.1 mmol/L (3.5-5.1) 04/22/25 16:04 Chloride 103 mmol/L (98-107) 04/22/25 16:04 Carbon Dioxide 25 mmol/L (22-29) 04/22/25 16:04 Anion Gap 14.1 (5-19) 04/22/25 16:04 BUN 17 mg/dL (6-20) 04/22/25 16:04 Creatinine 1.0 mg/dL (0.7-1.2) 04/22/25 16:04 GFR Calculation 77.6 mL/min (90-130) L 04/22/25 16:04 Glucose 87 mg/dL (65-115) 04/22/25 16:04 Calculated Osmolality 285 mOsm/kg (285-295) 04/22/25 16:04 Calcium 9.5 mg/dL (8.5-10.5) 04/22/25 16:04 Total Bilirubin 0.3 mg/dL (0.15-1.2) 04/22/25 16:04 AST 24 U/L (0-40) 04/22/25 16:04 ALT 44 U/L (0-41) H 04/22/25 16:04 Alkaline Phosphatase 72 U/L (40-130) 04/22/25 16:04 Total Protein 6.5 g/dL (6.6-8.7) L 04/22/25 16:04 Albumin 4.3 g/dL (3.5-5.2) 04/22/25 16:04 Globulin 2.2 g/dL (1.3-4.6) 04/22/25 16:04 Salicylates < 0.3 mg/dL (3-10) L 04/22/25 16:04 Urine Opiates Screen Negative ng/mL (Negative) 04/22/25 16:10 Acetaminophen < 5.0 ug/mL (10-30) L 04/22/25 16:04 Ur Barbiturates Screen Negative ng/mL (Negative) 04/22/25 16:10 Valproic Acid 119.7 ug/mL (50-100) H 04/22/25 16:04 Ur Phencyclidine Scrn Negative ng/mL (Negative) 04/22/25 16:10 Ur Amphetamines Screen Negative ng/mL (Negative) 04/22/25 16:10 U Benzodiazepines Scrn Negative ng/mL (Negative) 04/22/25 16:10 Urine Cocaine Screen Negative ng/mL (Negative) 04/22/25 16:10 U Marijuana (THC) Screen Negative ng/mL (Negative) 04/22/25 16:10 Ethyl Alcohol < 10 mg/dL (0-10) 04/22/25 16:04 No radiology studies performed this visit Discharge Plan Discharge Patient Disposition: Admitted As Inpatient Clinical Impression: Behavioral disorder, Suicidal ideation, Intellectual disability Condition: Stable Coding Level of Care Code ED Secured Entrance Monitor for Chg Fwd Documented by User: Emerson Crandall MD 04/22/25 17:46 HPI - Psych General: Chief Complaint: Psychiatric Symptoms Stated Complaint: behavioral Related Data Home Medications ?Medication ?Instructions ?Recorded ?Confirmed Lactobacillus acidophilus 1 tab PO DAILY 09/25/24 04/22/25 (Acidophilus chewable tablet) aluminum-mag hydroxide-simethicone 30 ml PO Q4H PRN Constipation 09/25/24 04/22/25 200 mg-200 mg-20 mg/5 mL oral susp (Xenia-Lanta) aspirin 81 mg tablet,delayed 81 mg PO DAILY 09/25/24 04/22/25 release atorvastatin 20 mg tablet 20 mg PO QPM 09/25/24 04/22/25 citalopram 40 mg tablet 40 mg PO DAILY 09/25/24 04/22/25 dicyclomine 10 mg capsule 10 mg PO TID 09/25/24 04/22/25 ergocalciferol (vitamin D2) 1,250 1,250 mcg PO Q7D 09/25/24 04/22/25 mcg (50,000 unit) capsule hydroxyzine HCl 25 mg tablet 25 mg PO QPM 09/25/24 04/22/25 loperamide 2 mg tablet 2 mg PO Q6H PRN Constipation 09/25/24 04/22/25 magnesium hydroxide 400 mg/5 mL 30 ml PO DAILY PRN Constipation 09/25/24 04/22/25 oral suspension (Milk of Magnesia) meloxicam 15 mg tablet 15 mg PO DAILY 09/25/24 04/22/25 metoprolol tartrate 25 mg tablet 25 mg PO BID 09/25/24 04/22/25 omeprazole 20 mg capsule,delayed 20 mg PO DAILY 09/25/24 04/22/25 release simethicone 80 mg chewable tablet 80 mg PO Q6H PRN indigestion/gas 09/25/24 04/22/25 tamsulosin 0.4 mg capsule 0.4 mg PO QPM 09/25/24 04/22/25 acetaminophen 325 mg tablet 650 mg PO Q6H PRN general 04/22/25 04/22/25 discomfort bisacodyl 10 mg rectal suppository 10 mg FL DAILY PRN Constipation 04/22/25 04/22/25 miconazole nitrate 2 % topical See Rx Instructions .Route .COMPLEX 04/22/25 04/22/25 cream Previous Rx's ?Medication ?Instructions ?Recorded divalproex 500 mg tablet,delayed 1,500 mg (3 x 500 mg) PO 0900,2100 10/03/24 release 30 days #180 tabs paliperidone 9 mg tablet,extended 9 mg PO DAILY #7 tabs 02/20/25 release 24 hr (Invega) Allergies Allergy/AdvReac Type Severity Reaction Status Date / Time cucumber Allergy Unknown Verified 09/28/24 08:59 mushroom Allergy Unknown Verified 09/24/24 19:27 Course Vital Signs: Vital signs: Vital Signs Temperature 98.4 F 04/22/25 15:56 Pulse Rate 86 04/22/25 16:25 Respiratory Rate 16 04/22/25 15:56 Blood Pressure 134/89 04/22/25 15:56 Pulse Oximetry 96 04/22/25 16:25 Oxygen Delivery Me thod Room Air 04/22/25 16:25 MDM - Psych Medical Decision Making Patient had presented by ambulance from retirement/assisted living due to an outburst he had with staff, where he was hitting them following being denied privileges to craft. Please refer to the HPI for the full story, patient, cooperative. Denying SI HI but there are affidavits indicating that he was very violent with staff and had attempted to suffocate himself. He has history of similar in the past, seen here prior in January of this year for similar and was discharged back. Patient states he does okay until he has these outbursts, he is cleared medically and I spoke to Dr. Connelly, psychiatrist, who is except patient to the neuropsychiatric unit. Dr. Crandall briefed on this patient and will place admit orders. There are affidavits on patient's chart. Discussed this patient with midlevel patient's from retirement history aggressive behavior he has been appropriate and cooperative he is medically cleared patient is being admitted to the MPU with Dr. Osorio excepting labs showed no significant abnormalities Lab Data 04/22/25 16:04 04/22/25 16:04 Laboratory Results WBC 11.52 10^3/uL (3.29-11.43) H 04/22/25 16:04 RBC 4.28 10^6/uL (3.85-5.65) 04/22/25 16:04 Hgb 13.60 g/dL (11.27-16.99) 04/22/25 16:04 Hct 40.1 % (37-53) 04/22/25 16:04 MCV 93.7 fl (82-101) 04/22/25 16:04 MCH 31.8 pg (27-33) 04/22/25 16:04 MCHC 33.9 g/dL (30-55) 04/22/25 16:04 RDW 12.6 % (12.1-15.1) 04/22/25 16:04 Plt Count 162 10^3/cmm (157-399) 04/22/25 16:04 MPV 9.1 fL (7.4-10.4) 04/22/25 16:04 Neut % (Auto) 66.5 % 04/22/25 16:04 Lymph % (Auto) 15.1 % 04/22/25 16:04 [place] % (Auto) 16.3 % 04/22/25 16:04 Eos % (Auto) 0.4 % 04/22/25 16:04 Baso % (Auto) 0.4 % 04/22/25 16:04 Neut # (Auto) 7.65 10^3/uL (1.8-7.7) 04/22/25 16:04 Lymph # (Auto) 1.7 10^3/uL (0.8-4.8) 04/22/25 16:04 [place] # (Auto) 1.9 10^3/uL (0.2-0.9) H 04/22/25 16:04 Eos # (Auto) 0.1 10^3/uL (0.0-0.8) 04/22/25 16:04 Baso # (Auto) 0.1 10^3/uL (0.0-0.1) 04/22/25 16:04 Nucleated RBC % (auto) 0 % 04/22/25 16:04 Nucleated RBCs # 0.0 /100WBC 04/22/25 16:04 Sodium 137 mmol/L (136-145) 04/22/25 16:04 Potassium 5.1 mmol/L (3.5-5.1) 04/22/25 16:04 Chloride 103 mmol/L (98-107) 04/22/25 16:04 Carbon Dioxide 25 mmol/L (22-29) 04/22/25 16:04 Anion Gap 14.1 (5-19) 04/22/25 16:04 BUN 17 mg/dL (6-20) 04/22/25 16:04 Creatinine 1.0 mg/dL (0.7-1.2) 04/22/25 16:04 GFR Calculation 77.6 mL/min (90-130) L 04/22/25 16:04 Glucose 87 mg/dL (65-115) 04/22/25 16:04 Calculated Osmolality 285 mOsm/kg (285-295) 04/22/25 16:04 Calcium 9.5 mg/dL (8.5-10.5) 04/22/25 16:04 Total Bilirubin 0.3 mg/dL (0.15-1.2) 04/22/25 16:04 AST 24 U/L (0-40) 04/22/25 16:04 ALT 44 U/L (0-41) H 04/22/25 16:04 Alkaline Phosphatase 72 U/L (40-130) 04/22/25 16:04 Total Protein 6.5 g/dL (6.6-8.7) L 04/22/25 16:04 Albumin 4.3 g/dL (3.5-5.2) 04/22/25 16:04 Globulin 2.2 g/dL (1.3-4.6) 04/22/25 16:04 Salicylates < 0.3 mg/dL (3-10) L 04/22/25 16:04 Urine Opiates Screen Negative ng/mL (Negative) 04/22/25 16:10 Acetaminophen < 5.0 ug/mL (10-30) L 04/22/25 16:04 Ur Barbiturates Screen Negative ng/mL (Negative) 04/22/25 16:10 Valproic Acid 119.7 ug/mL (50-100) H 04/22/25 16:04 Ur Phencyclidine Scrn Negative ng/mL (Negative) 04/22/25 16:10 Ur Amphetamines Screen Negative ng/mL (Negative) 04/22/25 16:10 U Benzodiazepines Scrn Negative ng/mL (Negative) 04/22/25 16:10 Urine Cocaine Screen Negative ng/mL (Negative) 04/22/25 16:10 U Marijuana (THC) Screen Negative ng/mL (Negative) 04/22/25 16:10 Ethyl Alcohol < 10 mg/dL (0-10) 04/22/25 16:04 Discharge Plan Discharge Patient Disposition: Admitted As Inpatient Clinical Impression: Behavioral disorder, Suicidal ideation, Intellectual disability Condition: Stable Coding Level of Care Code ED Secured Entrance Monitor for Cedric Benavidez
[2025-04-22 16:20] LABS: Hematocrit 40.1 % (37-53); Hemoglobin 13.60 g/dL (11.27-16.99); Mean Corpuscular HGB Conc 33.9 g/dL (30-55); Mean Corpuscular Hemoglobin 31.8 pg (27-33); Mean Corpuscular Volume 93.7 fl (82-101); Nucleated Red Blood Cells % 0 %; Platelet Count 162 10^3/cmm (157-399); Red Blood Count 4.28 10^6/uL (3.85-5.65); White Blood Count 11.52 10^3/uL (3.29-11.43)
[2025-04-22 16:25] VITALS: PULSE 86; O2SAT 96
[2025-04-22 16:45] LABS: PCP Screen Urine Negative (Negative)
[2025-04-22 16:52] LABS: Acetaminophen < 5.0 ug/mL (10-30); Alanine Aminotransferase 44 U/L (0-41); Albumin Level 4.3 g/dL (3.5-5.2); Alcohol Level < 10 mg/dL (0-10); Alkaline Phosphatase 72 U/L (40-130); Anion Gap 14.1 (5-19); Aspartate Amino Transferase 24 U/L (0-40); Blood Urea Nitrogen 17 mg/dL (6-20); Calcium 9.5 mg/dL (8.5-10.5); Carbon Dioxide 25 mmol/L (22-29); Chloride 103 mmol/L (98-107); Globulin 2.2 g/dL (1.3-4.6); Glucose 87 mg/dL (65-115); Osmolality Calculated 285 mOsm/kg (285-295); Potassium 5.1 mmol/L (3.5-5.1); Salicylate < 0.3 mg/dL (3-10); Sodium 137 mmol/L (136-145); Total Protein 6.5 g/dL (6.6-8.7)
--- NOTE | 2025-04-22 17:00 | PC.NURSE ---
PATIENT COMING FROM [facility].
--- NOTE | 2025-04-22 17:17 | PC.NURSE ---
Addendum entered by Daisha Rodriguez LPN 04/22/25 17:21: Sita May number [phone]. Original Note: Sita May called and notified of pt being admitted.
[2025-04-22 17:59] VITALS: BP 128/89; PULSE 92; RESP 20; O2SAT 95
--- NOTE | 2025-04-22 18:07 | PC.NURSE ---
Medications reconciled
[2025-04-22] MEDS: miconazole 2% topical cream 28 gm 1 APPLIC TOPICAL (18:36)
[2025-04-22 20:25] VITALS: BP 132/88; PULSE 91; RESP 16; O2SAT 94
[2025-04-22 20:38] VITALS: TEMP 36.6
[2025-04-22] MEDS: divalproex DR 500 mg Tablet 1500 MG PO (20:42)
[2025-04-22 21:29] VITALS: PULSE 88; O2SAT 95
[2025-04-23 06:00] VITALS: BP 130/80; PULSE 67; RESP 16; TEMP 36.6; O2SAT 95
[2025-04-23] MEDS: divalproex DR 500 mg Tablet 1500 MG PO ×2 (07:54→20:34)
[2025-04-23] MEDS: CITALOPRAM 40 MG TABLET PO (07:55)
[2025-04-23] MEDS: paliperidone ER 9 mg Tablet PO (07:55)
[2025-04-23] MEDS: blistex lip oint 7 gm Tube 1 APPLIC TOPICAL (07:59)
[2025-04-23] MEDS: miconazole 2% topical cream 28 gm 1 APPLIC TOPICAL ×2 (10:11→17:36)
--- NOTE | 2025-04-23 13:51 | W.PM.NPUH&PS ---
Providers/Chief Complaint Admitting Physician: Abelardo Connelly MD Primary Care Provider: Wilman Britton Chief Complaint: behavioral HPI NPU History of Present Illness Dameon Hernandez is a 54 year old male with a history of a recent hospitalization on the neuropsychiatric unit in January 2025 who presented to the emergency department by ambulance from his [facility] after he had made threats to suffocate himself with a pillow. The patient was admitted to the neuropsychiatric unit for further evaluation and treatment. He has a history of poor impulse control and a history of atypical auditory hallucinations. He reports that he had been denied privileges by a staff member named Ted and states that he had become angry at being on fairly denied these scientology and stated that in anger he had taken a pillow and put it up to his head in an attempt to suffocate himself. He reports having problems with managing his frustrations. He reports that he is frequently angry when things do not go his way. He denies any suicidal or homicidal ideation at this time. He reports that he reports that he had been playing with his model planes and had been denied the ability to access his model toys. He has a past history of explosive outbursts. He currently reports that he has not been hearing voices. He had denied seeing or hearing demons today. He does report at times feeling lonely. He has a noted history of destruction of property and throwing various items. He had reported no recent weight weirdness from the facility. He does report having chronic problems with irritability and reports a history of poor frustration tolerance. He had endorsed having compliance with his medication regimen. The patient has a noted history of charges of being convicted as a pediatric sex offender although he had denied this vehemently. He reports problems with anger. He did not report any substantial changes to his medications or to his living situation since his last hospitalization in January 2025. Psychiatric Medications: Depakote 1500mg bid, Invega 9mg daily, Celexa 40mg daily. Excerpt from NPU Discharge summary from 02/20/25 below: Discharge Diagnosis 1. Antisocial personality disorder: 2. Intellectual disability: 3. Behavioral disorder: 4. Aggressive behavior: Reason for Visit mhe Brief History: History of Present Illness Dameon Hernandez is a 54 year old male who presented to the emergency department with the following report: Chief Complaint: Psychiatric Symptoms Stated Complaint: mhe Time Seen by Provider: 02/16/25 17:29 History of Present Illness: Patient is a 54-year-old gentleman with known schizophrenia that presents to the ED with hallucinations. He states that he keeps seeing demons. He does have chronic memory loss. His last psychiatric admission was in September. Patient states he is not suicidal, no plan, no fleeting thoughts, not homicidal. He stated that he did lash out to someone at the assisted verbally, and has apologized multiple times because he feels bad for that. He wants to go to the psychiatric [facility]ida because he would like to fix this issue, and never wants to lash out at anyone. Associated symptoms: Reports auditory hallucinations and visual hallucinations; Deny homicidal ideation or suicidal ideation. He was admitted to the neuropsychiatric unit for definitive treatment of those issues. He is known to [facility] psychiatry only through his last hospitalization in September. An excerpt from that discharge summary is included below for context and the fact that he is a limited or poor historian and there have been no substantive changes. He presents from his facility as he had before this time reporting that he is having increase in hallucinations, irritability and low frustration tolerance. He identifies that his medication he has gotten adjusted to an in maybe it is not working as well. We agreed that this provider will get collateral information to understand what is going on at his facility but we also discussed the risks, benefits and alternatives of increasing his Invega to 9 mg p.o. daily and he understood and agreed to proceed as documented in this note. Per his 10/03/2024 [facility] inpatient psychiatric discharge summary: Diagnoses at Discharge Discharge Diagnosis 1. Antisocial personality disorder: 2. Intellectual disability: 3. Behavioral disorder: 4. Aggressive behavior: Reason for Visit Reason for Visit: SI Brief History: History of Present Illness Dameon Hernandez is a 54 year old male who presented to the emergency department with the following report: AcuteChief Complaint: Psychiatric Symptoms Stated Complaint: SI Time Seen by Provider: 09/24/24 19:22 History of Present Illness: 54-year-old man with a history of intellectual disability, antisocial personality, hypertension and bipolar disorder who presents emergency room by ambulance from a assisted. halfway reports that he has been having behavioral outburst that have been worsening and severity. That is destroyed property and throwing things. They also say that he was trying to climb a fence. He tells me that all of this is false accusations. He also tells me that he had been accused of something and this was a false accusation as well. According the assisted he has been convicted as a pediatric sex offender. He denies everything at this time. He says he was sitting on the ground outside and he was dirty. And that he did not attack anyone or try to climb any fences. He was admitted to the neuropsychiatric unit for definitive treatment of those issues. He is unknown to [facility] psychiatry through inpatient or outpatient services. He presented today as a very poor historian as he was very lethargic and hard to arouse Fall asleep during interview. He spoke earlier briefly and he was alert but by the time I saw him he was unable to be awoken for regular conversation. Even so it appears that he is a limited historian due to past diagnosis of intellectual disability and there is significant discrepancy between his reports and those of his facility. 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 For reasons possibly of being an appropriate in front of his roommate he was removed from the ISL and now is in a assisted. I do not report those kinds of issues thus far but report him to be quite mercurial and having essentially intermittent explosions related to boundary setting. He had denied this concern or issue reporting that he is misunderstood. They report that in situations where they set limits he will immediately be explosive or agitated and not able to be redirected. Again he has denied these accusations. They even report that in this situation he had a very fast but aggressive response to the interaction with a staff member and was reportedly throwing things. There is even some report of him climbing on something but he denies that to be true either. They report however shortly after he had had his explosion, he ended up seeming to calm down but concerns about his behavior and that it was seeming to escalate were present and so he was brought to the hospital for evaluation of his medication. We discussed the risks, benefits and alternatives of considering changing out of the Seroquel and possibly giving him something like Invega or Abilify but we we will need to get some information on past medications and he understood and agreed to proceed as is documented in this note. He does have a guardian and so we will reach out to the guardian and figure out what that person knows if it is a longtime guardian or somebody from the facility. There are some concerns about his amount of medication and we discussed that we would evaluate his medication and make changes as indicated. Hospital Course During the hospitalization, the patient had routine laboratory studies which were within normal limits except for a few outliers. Additionally, there was a general medical evaluation which was also within normal limits and revealed no new acute processes. At the time of discharge, lethality was denied and psychosis was resolving. Mood and anxiety were well managed. The patient endorsed a plan to avoid all drugs of abuse and follow up with the aftercare recommendations of the treatment team. The patient was evaluated and deemed to be absent credible lethality and had achieved the maximum benefit from an inpatient hospitalization, and so was discharged. Depakote level on 10/03/24 was 96.1, Seroquel was discontinued during his hospital stay. Invega and depakote along with celexa was restarted with improved mood noted at the time of discharge. Hospital Course Hospital Course The patient was restarted on his outpatient medications and Invega was increased from 6 mg to 9 mg daily. He had complained of auditory hallucinations and visions of seeing demons that appeared to resolve with the change in his medications. During the hospitalization, the patient had routine laboratory studies which were within normal limits except for a few outliers.? Additionally, there was a general medical evaluation which was also within normal limits and revealed no new acute processes.? At the time of discharge, lethality was denied and psychosis was resolving.? Mood and anxiety were well managed.? The patient endorsed a plan to avoid all drugs of abuse and follow up with the aftercare recommendations of the treatment team.? The patient was evaluated and deemed to be absent credible lethality and had achieved the maximum benefit from an inpatient hospitalization, and so was discharged. ? Meds NPU Home Medications ?Medication ?Instructions ?Recorded ?Confirmed ?Last Taken ?Type Lactobacillus acidophilus 1 tab PO DAILY 09/25/24 04/22/25 04/22/25 History (Acidophilus chewable tablet) aluminum-mag hydroxide-simethicone 30 ml PO Q4H PRN Constipation 09/25/24 04/22/25 03/06/25 History 200 mg-200 mg-20 mg/5 mL oral susp (Xenia-Lanta) aspirin 81 mg tablet,delayed 81 mg PO DAILY 09/25/24 04/22/25 04/22/25 History release atorvastatin 20 mg tablet 20 mg PO QPM 09/25/24 04/22/25 04/21/25 History citalopram 40 mg tablet 40 mg PO DAILY 09/25/24 04/22/25 04/22/25 History dicyclomine 10 mg capsule 10 mg PO TID 09/25/24 04/22/25 04/22/25 History ergocalciferol (vitamin D2) 1,250 1,250 mcg PO Q7D 09/25/24 04/22/25 04/19/25 History mcg (50,000 unit) capsule hydroxyzine HCl 25 mg tablet 25 mg PO QPM 09/25/24 04/22/25 04/21/25 History loperamide 2 mg tablet 2 mg PO Q6H PRN Constipation 09/25/24 04/22/25 Unknown History magnesium hydroxide 400 mg/5 mL 30 ml PO DAILY PRN Constipation 09/25/24 04/22/25 Unknown History oral suspension (Milk of Magnesia) meloxicam 15 mg tablet 15 mg PO DAILY 09/25/24 04/22/25 04/22/25 History metoprolol tartrate 25 mg tablet 25 mg PO BID 09/25/24 04/22/25 04/22/25 History omeprazole 20 mg capsule,delayed 20 mg PO DAILY 09/25/24 04/22/25 04/22/25 History release simethicone 80 mg chewable tablet 80 mg PO Q6H PRN indigestion/gas 09/25/24 04/22/25 03/13/25 History tamsulosin 0.4 mg capsule 0.4 mg PO QPM 09/25/24 04/22/25 04/21/25 History divalproex 500 mg tablet,delayed 1,500 mg (3 x 500 mg) PO 0900,2100 10/03/24 04/22/25 04/22/25 Rx release 30 days #180 tabs paliperidone 9 mg tablet,extended 9 mg PO DAILY #7 tabs 02/20/25 04/22/25 04/22/25 Rx release 24 hr (Invega) acetaminophen 325 mg tablet 650 mg PO Q6H PRN general 04/22/25 04/22/25 04/21/25 History discomfort bisacodyl 10 mg rectal suppository 10 mg KS DAILY PRN Constipation 04/22/25 04/22/25 Unknown History miconazole nitrate 2 % topical See Rx Instructions .Route .COMPLEX 04/22/25 04/22/25 04/22/25 History cream Allergies Allergy/AdvReac Type Severity Reaction Status Date / Time cucumber Allergy Unknown Verified 09/28/24 08:59 mushroom Allergy Unknown Verified 09/24/24 19:27 Mental Status Exam MSE Comments: This is an obese white male, with hospital scrubs on, disheveled with limited eye contact looking slightly older than his stated age. No abnormal involuntary motor movements except for mild psychomotor retardation. He was cooperative with exam in no acute distress. Speech was decreased in rate and normal in volume and dysarthric. Mood described as all right. His affect appeared euthymic. Thought process was mostly linear. Thought content: patient denied suicidal or homicidal ideation, there were no delusions reported or noted, patient denied any auditory or visual hallucinations. Attention and concentration appeared intact, and memory appears reliable but none were formally tested. He is arousable and alert and oriented to person, place and time. Insight and judgment are impaired. Impulse control is impaired, and intellectual ability appears limited versus impaired. Vitals/I&O/Wt Last Vital Signs Temp 97.9 F 04/23/25 06:00 Pulse 67 04/23/25 06:00 Resp 16 04/23/25 06:00 BP 130/80 04/23/25 06:00 Pulse Ox 95 04/23/25 06:00 O2 Del Method Room Air 04/22/25 20:25 FiO2 21 04/22/25 21:29 Weight last 48 hrs Weight 117.934 kg Data NPU 04/22/25 16:04 04/22/25 16:04 A&P Assessment and plan 1. Intermittent explosive disorder: 2. Antisocial personality disorder: 3. Intellectual disability: 4. Aggressive behavior: 5. Suicidal ideation: Plan: This is a 54 year old white male with a long history of mental health issues including intellectual disability among other impulse control issues who is in a assisted after previously being in the IS history of some inappropriate or [id number] behaviors. He is known to us through a recent hospitalization two months ago. He is minimizing any thoughts to hurting himself or others currently. 1. Restart outpatient medications including Depakote, Invega and Celexa as previously prescribed. 2. Continue every 15 minute checks for safety. 3. Encourage individual, group and milieu therapies. 4. Get collateral information. 5. Evaluate against the backdrop of 96-hour hold. PDMP PDMP Reviewed: Not Reviewed Involuntary Hold Information Hold Status: Legal Status: Active Guardianship Attestations NPU Medical Necessity Statement*: Inpatient hospitalization is medically necessary and the clinically appropriate intervention at this time. We will monitor medications and make changes as indicated. Patient will be in the hospital for over two midnights. His likely length of stay is 2-3 days. Coding Level of Care Code Acute Code for g Fwd Diagnoses Intermittent explosive disorder F63.81 Antisocial personality disorder F60.2 Intellectual disability F79 Aggressive behavior R46.89 Suicidal ideation R45.851
[2025-04-23 14:00] VITALS: BP 126/80; PULSE 96; RESP 18; TEMP 36.4; O2SAT 96
[2025-04-23] MEDS: ATORVASTATIN 20 MG TABLET PO (17:24)
[2025-04-23 19:50] VITALS: BP 123/89; PULSE 90; RESP 18; TEMP 36.6; O2SAT 95
[2025-04-24 06:00] VITALS: BP 142/87; PULSE 82; RESP 20; TEMP 36.6; O2SAT 95
[2025-04-24] MEDS: blistex lip oint 7 gm Tube 1 APPLIC TOPICAL (08:48)
[2025-04-24] MEDS: paliperidone ER 9 mg Tablet PO (08:48)
[2025-04-24] MEDS: miconazole 2% topical cream 28 gm 1 APPLIC TOPICAL (08:48)
[2025-04-24] MEDS: divalproex DR 500 mg Tablet 1500 MG PO (08:49)
[2025-04-24] MEDS: lactobacillus 1 Tablet 1 TAB PO (08:49)
[2025-04-24] MEDS: CITALOPRAM 40 MG TABLET PO (09:05)
--- NOTE | 2025-04-24 10:59 | P.NPUDS_ITS ---
Diagnoses at Discharge Discharge Diagnosis 1. Intermittent explosive disorder: 2. Antisocial personality disorder: 3. Intellectual disability: 4. Aggressive behavior: 5. Suicidal ideation: Reason for Visit Reason for Visit: behavioral Brief History: History of Present Illness Dameon Hernandez is a 54 year old male with a history of a recent hospitalization on the neuropsychiatric unit in January 2025 who presented to the emergency department by ambulance from his [facility] after he had made threats to suffocate himself with a pillow. The patient was admitted to the neuropsychiatric unit for further evaluation and treatment. He has a history of poor impulse control and a history of atypical auditory hallucinations. He reports that he had been denied privileges by a staff member named Ted and states that he had become angry at being on fairly denied these jain and stated that in anger he had taken a pillow and put it up to his head in an attempt to suffocate himself. He reports having problems with managing his frustrations. He reports that he is frequently angry when things do not go his way. He denies any suicidal or homicidal ideation at this time. He reports that he reports that he had been pl aying with his model planes and had been denied the ability to access his model toys. He has a past history of explosive outbursts. He currently reports that he has not been hearing voices. He had denied seeing or hearing demons today. He does report at times feeling lonely. He has a noted history of destruction of property and throwing various items. He had reported no recent weight weirdness from the facility. He does report having chronic problems with irritability and reports a history of poor frustration tolerance. He had endorsed having compliance with his medication regimen. The patient has a noted history of charges of being convicted as a pediatric sex offender although he had denied this vehemently. He reports problems with anger. He did not report any substantial changes to his medications or to his living situation since his last hospitalization in January 2025. Psychiatric Medications: Depakote 1500mg bid, Invega 9mg daily, Celexa 40mg daily. Excerpt from NPU Discharge summary from 02/20/25 below: Discharge Diagnosis 1. Antisocial personality disorder: 2. Intellectual disability: 3. Behavioral disorder: 4. Aggressive behavior: Reason for Visit mhe Brief History: History of Present Illness Dameon Hernandez is a 54 year old male who presented to the emergency department with the following report: Chief Complaint: Psychiatric Symptoms Stated Complaint: mhe Time Seen by Provider: 02/16/25 17:29 History of Present Illness: Patient is a 54-year-old gentleman with known schizophrenia that presents to the ED with hallucinations. He states that he keeps seeing demons. He does have chronic memory loss. His last psychiatric admission was in September. Patient states he is not suicidal, no plan, no fleeting thoughts, not homicidal. He stated that he did lash out to someone at the longterm verbally, and has apologized multiple times because he feels bad for that. He wants to go to the psychiatric [facility] because he would like to fix this issue, and never wants to lash out at anyone. Associated symptoms: Reports auditory hallucinations and visual hallucinations; Deny homicidal ideation or suicidal ideation. He was admitted to the neuropsychiatric unit for definitive treatment of those issues. He is known to [facility] psychiatry only through his last hospitalization in September. An excerpt from that discharge summary is included below for context and the fact that he is a limited or poor historian and there have been no substantive changes. He presents from his facility as he had before this time reporting that he is having increase in hallucinations, irritability and low frustration tolerance. He identifies that his medication he has gotten adjusted to an in maybe it is not working as well. We agreed that this provider will get collateral information to understand what is going on at his facility but we also discussed the risks, benefits and alternatives of increasing his Invega to 9 mg p.o. daily and he understood and agreed to proceed as documented in this note. Per his 10/03/2024 [facility] inpatient psychiatric discharge summary: Diagnoses at Discharge Discharge Diagnosis 1. Antisocial personality disorder: 2. Intellectual disability: 3. Behavioral disorder: 4. Aggressive behavior: Reason for Visit Reason for Visit: SI Brief History: History of Present Illness Dameon Hernandez is a 54 year old male who presented to the emergency department with the following report: AcuteChief Complaint: Psychiatric Symptoms Stated Complaint: SI Time Seen by Provider: 09/24/24 19:22 History of Present Illness: 54-year-old man with a history of intell ectual disability, antisocial personality, hypertension and bipolar disorder who presents emergency room by ambulance from a longterm. prison reports that he has been having behavioral outburst that have been worsening and severity. That is destroyed property and throwing things. They also say that he was trying to climb a fence. He tells me that all of this is false accusations. He also tells me that he had been accused of something and this was a false accusation as well. According the longterm he has been convicted as a pediatric sex offender. He denies everything at this time. He says he was sitting on the ground outside and he was dirty. And that he did not attack anyone or try to climb any fences. He was admitted to the neuropsychiatric unit for definitive treatment of those issues. He is unknown to [facility] psychiatry through inpatient or outpatient services. He presented today as a very poor historian as he was very lethargic and hard to arouse Fall asleep during interview. He spoke earlier briefly and he was alert but by the time I saw him he was unable to be awoken for regular conversation. Even so it appears that he is a limited historian due to past diagnosis of intellectual disability and there is significant discrepancy between his reports and those of his facility. 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 For reasons possibly of being an appropriate in front of his roommate he was removed from the ISL and now is in a longterm. I do not report those kinds of issues thus far but report him to be quite mercurial and having essentially intermittent explosions related to boundary setting. He had denied this concern or issue reporting that he is misunderstood. They report that in situations whe re they set limits he will immediately be explosive or agitated and not able to be redirected. Again he has denied these accusations. They even report that in this situation he had a very fast but aggressive response to the interaction with a staff member and was reportedly throwing things. There is even some report of him climbing on something but he denies that to be true either. They report however shortly after he had had his explosion, he ended up seeming to calm down but concerns about his behavior and that it was seeming to escalate were present and so he was brought to the hospital for evaluation of his medication. We discussed the risks, benefits and alternatives of considering changing out of the Seroquel and possibly giving him something like Invega or Abilify but we we will need to get some information on past medications and he understood and agreed to proceed as is documented in this note. He does have a guardian and so we will reach out to the guardian and figure out what that person knows if it is a longtime guardian or somebody from the facility. There are some concerns about his amount of medication and we discussed that we would evaluate his medication and make changes as indicated. Hospital Course During the hospitalization, the patient had routine laboratory studies which were within normal limits except for a few outliers. Additionally, there was a general medical evaluation which was also within normal limits and revealed no new acute processes. At the time of discharge, lethality was denied and psychosis was resolving. Mood and anxiety were well managed. The patient endorsed a plan to avoid all drugs of abuse and follow up with the aftercare recommendations of the treatment team. The patient was evaluated and deemed to be absent credible lethality and had achieved the maximum benefit from an inpatient hospitalization, and so was discharged. Depakote level on 10/03/24 was 96.1, Seroquel was discontinued during his hospital stay. Invega and depakote along with celexa was restarted with improved mood noted at the time of discharge. Hospital Course Hospital Course The patient was restarted on his outpatient medications and Invega was increased from 6 mg to 9 mg daily. He had complained of auditory hallucinations and visions of seeing demons that appeared to resolve with the change in his medications. During the hospitalization, the patient had routine laboratory studies which were within normal limits except for a few outliers.? Additionally, there was a general medical evaluation which was also within normal limits and revealed no new acute processes.? At the time of discharge, lethality was denied and psychosis was resolving.? Mood and anxiety were well managed.? The patient endorsed a plan to avoid all drugs of abuse and follow up with the aftercare recommendations of the treatment team.? The patient was evaluated and deemed to be absent credible lethality and had achieved the maximum benefit from an inpatient hospitalization, and so was discharged. ? Hospital Course Hospital Course During the hospitalization, the patient had routine laboratory studies which were within normal limits except for a few outliers.? Additionally, there was a general medical evaluation which was also within normal limits and revealed no new acute processes.? At the time of discharge, lethality was denied and psychosis was resolving.? Mood and anxiety were well managed.? The patient endorsed a plan to avoid all drugs of abuse and follow up with the aftercare recommendations of the treatment team.? The patient was evaluated and deemed to be absent credible lethality and had achieved the maximum benefit from an inpatient hospitalization, and so was discharged.? The patient was restarted on all of his previous outpatient medications and no adjustments were made with any of his medications prior to discharge. Involuntary Hold Information Hold Status: Legal Status: Active Guardianship Mental Status Exam MSE Comments: This is an obese white male, with hospital scrubs on, disheveled with limited eye contact looking slightly older than his stated age. No abnormal involuntary motor movements except for mild psychomotor retardation. He was cooperative with exam in no acute distress. Speech was decreased in rate and normal in volume and dysarthric. Mood described as all right. His affect appeared euthymic. Thought process was mostly linear. Thought content: patient denied rodriguez icidal or homicidal ideation, there were no delusions reported or noted, patient denied any auditory or visual hallucinations. Attention and concentration appeared intact, and memory appears reliable but none were formally tested. He is arousable and alert and oriented to person, place and time. Insight and judgment are limited. Impulse control is fair on discharge. His intellectual ability appears commensurate with mild cognitive impairment. Discharge Data Studies Completed and Pending: Laboratory Results WBC 11.52 10^3/uL (3. 29-11.43) H 04/22/25 16:04 RBC 4.28 10^6/uL (3.8 5-5.65) 04/22/25 16:04 Hgb 13.60 g/dL (11.27 -16.99) 04/22/25 16:04 Hct 40.1 % (37-53) 04/22/25 16:04 MCV 93.7 fl (82-101) 04/22/25 16:04 MCH 31.8 pg (27-33) 04/22/25 16:04 MCHC 33.9 g/dL (30-55) 04/22/25 16:04 RDW 12.6 % (12.1-15.1 ) 04/22/25 16:04 Plt Count 162 10^3/cmm (157 -399) 04/22/25 16:04 MPV 9.1 fL (7.4-10.4) 04/22/25 16:04 Neut % (Auto) 66.5 % 04/22/25 16:04 Lymph % (Auto) 15.1 % 04/22/25 16:04 [place] % (Auto) 16.3 % 04/22/25 16:04 Eos % (Auto) 0.4 % 04/22/25 16:04 Baso % (Auto) 0.4 % 04/22/25 16:04 Neut # (Auto) 7.65 10^3/uL (1.8 -7.7) 04/22/25 16:04 Lymph # (Auto) 1.7 10^3/uL (0.8- 4.8) 04/22/25 16:04 [place] # (Auto) 1.9 10^3/uL (0.2- 0.9) H 04/22/25 16:04 Eos # (Auto) 0.1 10^3/uL (0.0- 0.8) 04/22/25 16:04 Baso # (Auto) 0.1 10^3/uL (0.0- 0.1) 04/22/25 16:04 Nucleated RBC % (a uto) 0 % 04/22/25 16:04 Nucleated RBCs # 0.0 /100WBC 04/22/25 16:04 Sodium 137 mmol/L (136-1 45) 04/22/25 16:04 Potassium 5.1 mmol/L (3.5-5 .1) 04/22/25 16:04 Chloride 103 mmol/L (98-10 7) 04/22/25 16:04 Carbon Dioxide 25 mmol/L (22-29) 04/22/25 16:04 Anion Gap 14.1 (5-19) 04/22/25 16:04 BUN 17 mg/dL (6-20) 04/22/25 16:04 Creatinine 1.0 mg/dL (0.7-1. 2) 04/22/25 16:04 GFR Calculation 77.6 mL/min (90-1 30) L 04/22/25 16:04 Glucose 87 mg/dL (65-115) 04/22/25 16:04 Calculated Osmolal ity 285 mOsm/kg (285- 295) 04/22/25 16:04 Calcium 9.5 mg/dL (8.5-10 .5) 04/22/25 16:04 Total Bilirubin 0.3 mg/dL (0.15-1 .2) 04/22/25 16:04 AST 24 U/L (0-40) 04/22/25 16:04 ALT 44 U/L (0-41) H 04/22/25 16:04 Alkaline Phosphata se 72 U/L (40-130) 04/22/25 16:04 Total Protein 6.5 g/dL (6.6-8.7 ) L 04/22/25 16:04 Albumin 4.3 g/dL (3.5-5.2 ) 04/22/25 16:04 Globulin 2.2 g/dL (1.3-4.6 ) 04/22/25 16:04 Salicylates < 0.3 mg/dL (3-10 ) L 04/22/25 16:04 Urine Opiates Scre en Negative ng/mL (N egative) 04/22/25 16:10 Acetaminophen < 5.0 ug/mL (10-3 0) L 04/22/25 16:04 Ur Barbiturates Sc reen Negative ng/mL (N egative) 04/22/25 16:10 Valproic Acid 119.7 ug/mL (50-1 00) H 04/22/25 16:04 Ur Phencyclidine S crn Negative ng/mL (N egative) 04/22/25 16:10 Ur Amphetamines Sc reen Negative ng/mL (N egative) 04/22/25 16:10 U Benzodiazepines Scrn Negative ng/mL (N egative) 04/22/25 16:10 Urine Cocaine Scre en Negative ng/mL (N egative) 04/22/25 16:10 U Marijuana (THC) Screen Negative ng/mL (N egative) 04/22/25 16:10 Ethyl Alcohol < 10 mg/dL (0-10) 04/22/25 16:04 Vitals: Last Vital Signs Temp 97.9 F 04/24/25 06:00 Pulse 82 04/24/25 06:00 Resp 20 H 04/24/25 06:00 BP 142/87 04/24/25 06:00 Pulse Ox 95 04/24/25 06:00 O2 Del Method Room Air 04/24/25 06:00 FiO2 21 04/22/25 21:29 Discharge Plan Discharge Patient Disposition: Home Condition: Stable Prescriptions: Continued atorvastatin 20 mg tablet 20 mg PO QPM citalopram 40 mg tablet 40 mg PO DAILY meloxicam 15 mg tablet 15 mg PO DAILY loperamide 2 mg Tablet 2 mg PO Q6H PRN (Reason: Constipation) aspirin 81 mg Tablet,Delayed Release (Dr/Ec) 81 mg PO DAILY magnesium hydroxide [Milk of Magnesia] 400 mg/5 mL Suspension 30 ml PO DAILY PRN (Reason: Constipation) tamsulosin 0.4 mg capsule 0.4 mg PO QPM omeprazole 20 mg capsule,delayed release(DR/EC) 20 mg PO DAILY hydroxyzine HCl 25 mg tablet 25 mg PO QPM ergocalciferol (vitamin D2) 1,250 mcg (50,000 unit) Capsule 1,250 mcg PO Q7D Rx Instructions: Fridays alum-mag hydroxide-simeth [Xenia-Lanta] 200-200-20 mg/5 mL Suspension 30 ml PO Q4H PRN (Reason: Constipation) Rx Instructions: administer between meals and at bedtime dicyclomine 10 mg capsule 10 mg PO TID simethicone 80 mg Tablet,Chewable 80 mg PO Q6H PRN (Reason: indigestion/gas) Acidophilus Tablet,Chewable 1 tab PO DAILY metoprolol tartrate 25 mg tablet 25 mg PO BID divalproex 500 mg Tablet,Delayed Release (Dr/Ec) 1,500 mg PO 0900,2100 30 Days Qty: 180 1RF paliperidone [Invega] 9 mg tablet extended release 24hr 9 mg PO DAILY Qty: 7 0RF acetaminophen 325 mg Tablet 650 mg PO Q6H PRN (Reason: general discomfort) miconazole nitrate 2 % cream See Rx Instructions .ROUTE .COMPLEX Rx Instructions: 1 applic topically to right great toe every shift for fungal infection. bisacodyl 10 mg Suppository 10 mg [place] DAILY PRN (Reason: Constipation) Discharge Order = DC NOW: Discharge Order (Routine); Ordered 04/24/25 Ordered By: Abelardo Connelly Referrals: Wilman Britton [Primary Care Provider, Internal Medicine] Discharge Diet: Usual diet Discharge Activity: Resume usual activity Patient Instructions: Depression (DC), Anxiety (DC), Psychotic Disorder (DC), Suicide Prevention (DC), Opioid Safety, Patient Portal & Michael Instructions Discharge Attestations NPU Time Spent in Discharge Care*: less than 30 min Specific Discharge Activities: Specific discharge activities: educating patient, discussing with pillowcase maker/social workers/dc planners and evaluating patient/reviewing data Coding Level of Care Code Acute Code for Chg Fwd Diagnoses Intermittent explosive disorder F63.81 Antisocial personality disorder F60.2 Intellectual disability F79 Aggressive behavior R46.89 Suicidal ideation R45.851
[2025-04-24 11:37] VITALS: BP 142/87; PULSE 82; RESP 20; TEMP 36.6; O2SAT 95
[2025-04-24 14:00] VITALS: BP 132/81; PULSE 84; RESP 16; TEMP 36.7; O2SAT 93
--- NOTE | 2025-04-24 15:23 | DCPLANNER ---
IMM was completed on 04/24/2026 @ [id number] and pt received a copy of rights.
== END 2025-04-24 14:15 | disposition intermediate care facility (04) | DRG 883 ==
LOC: ER 17:34 → NP 17:50
PROVIDERS: Emergency Medicine; Admitting Provider Psychiatry & Neurology Psychiatry; Emergency Provider Physician Assistant; PCP Student in an Organized Health Care Education/Training Program; Visit Provider Psychiatry & Neurology Psychiatry
DX: F63.81 Intermittent explosive disorder (principal); R45.851 Suicidal ideations; Z68.41 Body mass index [BMI] 40.0-44.9, adult; F60.2 Antisocial personality disorder; F79 Unspecified intellectual disabilities; E66.9 Obesity, unspecified; Z79.82 Long term (current) use of aspirin
CPT/HCPCS: 36415; 80053; 80164; 80306; 80307; 85025; 94660; 97150; 97165; 99285; J9999